=== PATIENT | male | born 1985 | race African-American/Black ===

== ENCOUNTER 2018-07-09 09:59 | Inpatient (IN) ==
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
[2018-07-09] MEDS ORDERED: PHENERGAN IV ONE (11:36)
[2018-07-09] MEDS ORDERED: SODIUM CHLORIDE 0.9% INJ ONE (11:36)
[2018-07-09] MEDS ORDERED: NS 1,000 ML IV ONE ×2 (11:37→12:35)
[2018-07-09 11:58] LABS: HEMATOCRIT 37.4 % (42.0-52.0); HEMOGLOBIN 12.5 g/dL (14.0-18.0); MCV 91.4 FL (81-99); RBC 4.09 XMIL (4.7-6.1); WBC 17.45 X1000 (4.8-10.8)
[2018-07-09 11:59] LABS: BASO# 0.03 X1000 (0.0-0.2); BASO% 0.2 % (0.0-0.8); EOS# 0.03 X1000 (0.0-0.7); EOS% 0.2 % (0.0-10.0); IMM GRAN# 0.05 X1000 (0.0-0.04); IMM GRAN% 0.3 % (0.0-0.5); LYMPH# 2.31 X1000 (1.2-3.4); LYMPH% 13.2 % (20.5-51.1); MCH 30.6 PG (27-31); MCHC 33.4 g/dL (33-37); MONO# 1.41 X1000 (0.11-0.59); MONO% 8.1 % (1.7-9.3); MPV 11.2 FL (7.4-10.4); NEUT# 13.62 X1000 (1.4-6.5); PLT 209 X1000 (130-400); RDW 13.3 % (11.5-14.5)
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
[2018-07-09 12:19] LABS: CREATININE 1.4 mg/dL (0.7-1.2); POTASSIUM 4.7 mmol/L (3.5-5.1)
[2018-07-09 12:20] LABS: CALCIUM 8.8 mg/dL (8.8-10.2); TOTAL BILIRUBIN 0.4 mg/dL (0.20-1.00); TOTAL PROTEIN 6.5 g/dL (6.3-8.3)
[2018-07-09 12:53] LABS: CK INDEX 0.1 (0.0-2.5); CK-MB 1.82 ng/mL (0.0-5.0)
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
[2018-07-09 13:57] LABS: UR AMPHETAMINES QUAL NONE DETECTED (NONE DETECT); UR BARBITUATES QUAL NONE DETECTED (NONE DETECT); UR BENZODIAZEPIN QUAL PRESUMPTIVE POSITIVE (NONE DETECT); UR CANNABINOIDS QUAL PRESUMPTIVE POSITIVE (NONE DETECT); UR COCAINE QUAL NONE DETECTED (NONE DETECT); UR METHADONE QUAL NONE DETECTED (NONE DETECT); UR METHAMPHETAMINE QUAL NONE DETECTED (NONE DETECT); UR OPIATES QUAL NONE DETECTED (NONE DETECT); UR OXYCODONE QUAL NONE DETECTED (NONE DETECT); UR PCP QUAL NONE DETECTED (NONE DETECT); UR PROPOXYPHENE QUAL NONE DETECTED (NONE DETECT); UR TCA QUAL NONE DETECTED (NONE DETECT)
[2018-07-09 14:12] LABS: URINE EPITHELIAL CELLS <10 /HPF (<10)
[2018-07-09 14:13] LABS: BILIRUBIN URINE NEGATIVE (NEGATIVE); CLARITY VERY CLOUDY (CLEAR); COLOR YELLOW; KETONE URINE TRACE mg/dL (NEGATIVE); URINE BACTERIA 2+ /HFP; URINE CAST NONE SEEN /LPF; URINE CRYSTAL NONE SEEN /HPF; URINE SOURCE CATH; URINE YEAST NONE SEEN /HPF
[2018-07-09 14:14] LABS: BLOOD URINE NEGATIVE (NEGATIVE); LEUKOCYTES URINE TRACE (NEGATIVE); NITRITE URINE POSITIVE (NEGATIVE); PH URINE 6.5; PROTEIN URINE 1+(30 mg/dL) mg/dL (NEGATIVE); SP GRAVITY URINE 1.025; UROBILINOGEN URINE 4 mg/dL
[2018-07-09] MEDS ORDERED: ZOFRAN IV PRN (14:22)
[2018-07-09] MEDS ORDERED: TYLENOL PO PRN (14:22)
[2018-07-09] MEDS: NS 1,000 ML IV SCH ×2 (15:03→23:54)
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
[2018-07-09] MEDS: NORCO-7.5 PO PRN ×2 (15:15→19:11)
[2018-07-09] MEDS ORDERED: TORADOL IV PRN (16:56)
[2018-07-09 17:03] LABS: CK INDEX 0.1 (0.0-2.5); CK-MB 1.88 ng/mL (0.0-5.0)
[2018-07-09] MEDS ORDERED: ROCEPHIN 1 GM in NS 50 ML IV SCH (18:00)
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
[2018-07-10] MEDS: NORCO-7.5 PO PRN ×2 (03:49→10:42)
[2018-07-10] MEDS: NS 1,000 ML IV SCH ×2 (06:19→18:38)
[2018-07-10 07:54] LABS: AGAP 7; BUN 17 mg/dL (8-22); CALCIUM 7.7 mg/dL (8.8-10.2); CHLORIDE 108 mmol/L (98-107); COSMO 279; CREATININE 0.9 mg/dL (0.7-1.2); ESTIMATED GFR > 60; GLUCOSE 98 mg/dL (70-104); SODIUM 139 mmol/L (136-145); TCO2 25 mmol/L (25-35)
[2018-07-10 08:05] LABS: BASO# 0.03 X1000 (0.0-0.2); BASO% 0.3 % (0.0-0.8); EOS# 0.11 X1000 (0.0-0.7); EOS% 1.1 % (0.0-10.0); HEMATOCRIT 23.5 % (42.0-52.0); HEMOGLOBIN 7.8 g/dL (14.0-18.0); IMM GRAN# 0.02 X1000 (0.0-0.04); IMM GRAN% 0.2 % (0.0-0.5); LYMPH# 2.93 X1000 (1.2-3.4); LYMPH% 29.4 % (20.5-51.1); MCH 30.4 PG (27-31); MCHC 33.2 g/dL (33-37); MCV 91.4 FL (81-99); MONO# 1.05 X1000 (0.11-0.59); MONO% 10.6 % (1.7-9.3); MPV 11.3 FL (7.4-10.4); NEUT# 5.81 X1000 (1.4-6.5); NEUT% 58.4 % (42.2-75.2); PLT 137 X1000 (130-400); RBC 2.57 XMIL (4.7-6.1); RDW 13.1 % (11.5-14.5); WBC 9.95 X1000 (4.8-10.8)
[2018-07-10 09:48] LABS: HEMATOCRIT 23.4 % (42.0-52.0); HEMOGLOBIN 7.8 g/dL (14.0-18.0); MCH 30.5 PG (27-31); MCHC 33.3 g/dL (33-37); MCV 91.4 FL (81-99); RBC 2.56 XMIL (4.7-6.1); WBC 9.45 X1000 (4.8-10.8)
[2018-07-10] MEDS: NICODERM PATCH TD SCH (10:42)
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
[2018-07-10] MEDS ORDERED: SODIUM CHLORIDE 0.9% INJ SCH (12:00)
[2018-07-10] MEDS: PEPCID IV SCH ×2 (12:23→23:57)
[2018-07-10] MEDS: MERREM 1 GM in NS 50 ML IV SCH ×2 (12:36→20:04)
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
[2018-07-10 16:47] LABS: HEMATOCRIT 27.3 % (42.0-52.0)
[2018-07-10 21:23] LABS: HEMATOCRIT 26.6 % (42.0-52.0); HEMOGLOBIN 8.9 g/dL (14.0-18.0)
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
[2018-07-10] MEDS: MORPHINE IV PRN (23:57)
[2018-07-11] MEDS: MORPHINE IV PRN (03:51)
[2018-07-11] MEDS: MERREM 1 GM in NS 50 ML IV SCH (03:51)
[2018-07-11] MEDS: NS 1,000 ML IV SCH (05:31)
[2018-07-11 07:34] LABS: BASO# 0.03 X1000 (0.0-0.2); BASO% 0.4 % (0.0-0.8); EOS# 0.11 X1000 (0.0-0.7); EOS% 1.4 % (0.0-10.0); HEMATOCRIT 24.4 % (42.0-52.0); IMM GRAN# 0.02 X1000 (0.0-0.04); IMM GRAN% 0.3 % (0.0-0.5); LYMPH# 2.66 X1000 (1.2-3.4); LYMPH% 33.8 % (20.5-51.1); MCHC 32.8 g/dL (33-37); MCV 91.4 FL (81-99); MONO# 0.82 X1000 (0.11-0.59); MONO% 10.4 % (1.7-9.3); MPV 11.1 FL (7.4-10.4); NEUT# 4.24 X1000 (1.4-6.5); NEUT% 53.7 % (42.2-75.2); PLT 143 X1000 (130-400); RBC 2.67 XMIL (4.7-6.1); RDW 13.3 % (11.5-14.5); WBC 7.88 X1000 (4.8-10.8)
[2018-07-11 07:52] LABS: AGAP 6; ALB/GLOB RATIO 1.6; ALKALINE PHOSPHATASE 34 U/L (32-122); BUN 10 mg/dL (8-22); CALCIUM 8.3 mg/dL (8.8-10.2); CHLORIDE 108 mmol/L (98-107); COSMO 280; DIRECT BILIRUBIN < 0.10 mg/dL (0.00-0.20); ESTIMATED GFR > 60; GLUCOSE 87 mg/dL (70-104); GOT 21 U/L (10-34); GPT 14 U/L (10-44); SODIUM 141 mmol/L (136-145); TCO2 27 mmol/L (25-35); TOTAL BILIRUBIN 0.61 mg/dL (0.20-1.00); TOTAL PROTEIN 4.9 g/dL (6.3-8.3)
[2018-07-11] MEDS: NICODERM PATCH TD SCH (08:49)
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
[2018-07-11] MEDS: PEPCID IV SCH (11:38)
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
[2018-07-11] MEDS: DILANTIN PO SCH ×3 (13:11→17:02)
[2018-07-11 15:22] VITALS: BP 145/73
--- NOTE | 2018-07-11 17:10 | Diag Imaging Result Doc PS360 ---
EXAM: MRI BRAIN W/WO CONTRAST HISTORY: siezure disorder. Normal CT brain TECHNIQUE: MRI brain with and without contrast. Axial, sagittal, and coronal images obtained in multiple sequences. These are followed the post contrasted axial and coronal images. COMPARISON: None. FINDINGS: No recent infarct. No microvascular ischemic changes. No hydrocephalus. No mass or midline shift. No enhancing lesion on the postcontrast images. No epidural or subdural fluid collection. Normal orbits. No sinus opacification. IMPRESSION: No abnormality. Electronically signed by Albin Goyal 07/11/2018 5:08 PM
--- NOTE | 2018-07-11 18:21 | EEG REPORT ---
DATE: 07/10/2018 COMMENT: This is a digitally recorded EEG on a young man with history suggestive of partial seizure including olfactory aura. FINDINGS: During waking, medium amplitude 10 hertz posterior rhythm is present symmetrically and reacts normally to eye opening. Background contains polymorphic and rhythmic theta frequencies over the frontal and central regions symmetrically. Eye blink and movement artifact are present but do not hinder interpretation. Photic stimulation produced some symmetric entrainment. Hyperventilation with good effort produced a small amount of symmetric slowing. Drowsing occurred briefly. Stage 2 sleep was not recorded. No definite epileptiform discharge was identified. INTERPRETATION: Normal EEG. CORRELATION: The absence of epileptiform discharges on a single EEG does not exclude a clinical diagnosis of seizures. cc: Lolita Douglas III, MD
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
== END 2018-07-11 17:23 | disposition home or self-care (01) | DRG 558 ==
LOC: P.ED 12:12 → P.MEDSURG 14:18 → SUATTDRO 14:18 → 4N 07-10 15:13
PROVIDERS: ATTEND Internal Medicine
CPT/HCPCS: 36430; 51701; 70450; 70553; 71010; 71045; 71101; 71260; 72125; 74177; 80048; 80053; 80076; 80104; 80301; 80305; 81001; 82550; 82553; 82948; 83605; 85014; 85018; 85025; 85027; 86850; 86900; 86901; 86920; 87088; 95816; 96361; 96365; 96375; 99285; A9270; A9579; G0431; G0434; G0477; J0696; J1885; J2185; J2270; J2550; J7030; P9016; P9612; Q9967; S0028; XXXXX

== ENCOUNTER 2019-03-13 10:32 | Inpatient (IN) ==
[2019-03-13] MEDS ORDERED: ATIVAN IV ONE ×3 (10:37→12:34)
[2019-03-13] MEDS ORDERED: ATIVAN ONE ×2 (10:52→12:40)
[2019-03-13] MEDS ORDERED: KEPPRA 2,000 MG in NS 100 ML IV ONE (10:58)
[2019-03-13 11:11] LABS: BASO# 0.14 X1000 (0.0-0.2); BASO% 0.6 % (0.0-0.8); EOS# 0.47 X1000 (0.0-0.7); HEMATOCRIT 54.3 % (42.0-52.0); HEMOGLOBIN 17.1 g/dL (14.0-18.0); IMM GRAN% 2.1 % (0.0-0.5); LYMPH# 10.67 X1000 (1.2-3.4); LYMPH% 44.6 % (20.5-51.1); MCH 30.6 PG (27-31); MCHC 31.5 g/dL (33-37); MCV 97.1 FL (81-99); MONO# 1.93 X1000 (0.11-0.59); MONO% 8.1 % (1.7-9.3); MPV 11.4 FL (7.4-10.4); NEUT# 10.24 X1000 (1.4-6.5); NEUT% 42.6 % (42.2-75.2); PLT 276 X1000 (130-400); RBC 5.59 XMIL (4.7-6.1); RDW 13.8 % (11.5-14.5); WBC 23.95 X1000 (4.8-10.8)
--- NOTE | 2019-03-13 11:18 | EKG Report ---
Test Performed on : 03/13/2019 10:45:59 AM Test Reason : Seizure Blood Pressure : / mmHG Vent. Rate : 088 BPM Atrial Rate : 088 BPM P-R Int : 154 ms QRS Dur : 094 ms QT Int : 322 ms P-R-T Axes : 075 074 047 degrees QTc Int : 389 ms Normal sinus rhythm. with sinus arrhythmia. Possible Left atrial enlargement Incomplete right bundle branch block Borderline ECG No previous ECGs available Unconfirmed Result
[2019-03-13 11:34] LABS: ESTIMATED GFR 49
[2019-03-13 11:54] LABS: UR AMPHETAMINES QUAL NONE DETECTED (NONE DETECT); UR BARBITUATES QUAL NONE DETECTED (NONE DETECT); UR BENZODIAZEPIN QUAL NONE DETECTED (NONE DETECT); UR CANNABINOIDS QUAL NONE DETECTED (NONE DETECT); UR COCAINE QUAL NONE DETECTED (NONE DETECT); UR METHADONE QUAL NONE DETECTED (NONE DETECT); UR OPIATES QUAL NONE DETECTED (NONE DETECT); UR OXYCODONE QUAL NONE DETECTED (NONE DETECT); UR PCP QUAL NONE DETECTED (NONE DETECT)
[2019-03-13 12:01] LABS: AGAP 34; ALB/GLOB RATIO 1.7; ALKALINE PHOSPHATASE 66 U/L (32-122); BUN 11 mg/dL (8-22); CALCIUM 10.7 mg/dL (8.8-10.2); CHLORIDE 104 mmol/L (98-107); COSMO 288; CREATININE 1.3 mg/dL (0.7-1.2); GLUCOSE 168 mg/dL (70-104); GOT 22 U/L (10-34); GPT 20 U/L (10-44); MAGNESIUM 2.1 mg/dL (1.5-2.7); PHENYTOIN < 0.80 ug/mL (10-20); POTASSIUM 4.5 mmol/L (3.5-5.1); SODIUM 148 mmol/L (136-145); TCO2 10 mmol/L (25-35); TOTAL BILIRUBIN 0.15 mg/dL (0.20-1.00); TOTAL PROTEIN 6.4 g/dL (6.3-8.3)
[2019-03-13 12:06] LABS: ALLEN TEST YES; BE -12.9 mmoll (-3.0-3.0); BLOOD TYPE ARTERIAL; HCO3-(ACT) 14.5 mmoll (20.0-26.0); METHB 0.8 % (0.0-1.5); O2(CT) 20.2 mL/dL (15.0-23.0); PCO2(98.6) 32 mmHg (35-45); PO2(98.6) 65 mmHg (60-100); SAMPLE BLOOD; THB 16.4 g/dL (11.5-17.4); pH(98.6) 7.23 (7.35-7.45)
--- NOTE | 2019-03-13 12:09 | Diag Imaging Result Doc PS360 ---
EXAM: CHEST-1 VIEW HISTORY: hypoxemia TECHNIQUE: Single view COMPARISON: 07/09/2018 FINDINGS: The lungs are well expanded. The heart is not enlarged. The vessels are not distended. There are small left basilar infiltrates. No effusion identified. IMPRESSION: Left basilar infiltrates Electronically signed by Albin Goyal 03/13/2019 12:06 PM
[2019-03-13 12:10] LABS: MODALITY NRB
[2019-03-13 12:11] LABS: O2HB 87.9 % (95.0-99.0)
[2019-03-13 12:25] LABS: LYMPHS 56 % (21-51); MONO 2 % (1-9); SEGS 38 % (42-75)
[2019-03-13] MEDS ORDERED: ROCEPHIN 2 GM in NS 50 ML IV ONE (12:32)
[2019-03-13] MEDS ORDERED: NS 0 ML ONE (12:40)
[2019-03-13] MEDS ORDERED: DIPRIVAN 1% 1,000 MG/100 ML BOTTLE ONE (13:02)
[2019-03-13] MEDS: DIPRIVAN 1% 1,000 MG/100 ML BOTTLE IV SCH ×4 (13:05→23:17)
[2019-03-13] MEDS ORDERED: DIPRIVAN 1% ONE (14:27)
[2019-03-13] MEDS ORDERED: DUONEB (A & A) INH PRN (14:28)
[2019-03-13] MEDS ORDERED: VANCOMYCIN IV PER PHARMACY MISC SCH (14:30)
[2019-03-13] MEDS ORDERED: CLINDAMYCIN 600 MG/NS 600 MG/50 ML IVPB IV SCH (14:30)
[2019-03-13] MEDS ORDERED: AMIDATE ONE (14:43)
[2019-03-13] MEDS ORDERED: QUELICIN ONE ×2 (14:44→15:13)
[2019-03-13] MEDS ORDERED: VERSED ONE (15:15)
[2019-03-13] MEDS ORDERED: KETAMINE ONE (15:15)
[2019-03-13] MEDS ORDERED: ZOFRAN IV PRN (15:17)
--- NOTE | 2019-03-13 15:22 | HISTORY AND PHYSICAL ---
ADDENDUM: The patient was brought to the ambulance after having a seizure. The patient was hyperventilating. No visible tongue biting evident. The patient was sweating profusely. The patient was unresponsive at the time of the examination in the ER. Upon my examination, this patient was very combative. He was using a BiPAP mask. He was of course not able to provide any information; there were no family members at bedside to provide more information. Upon ER examination, we think this patient has aspirated with elevated white cell count 23.95, and also the ABG shows metabolic acidosis with pH 7.30, with pCO2 32 and PO2 of 65 with a bicarbonate of 14.3 with likely this elevated from 9.2. BMP reveals so far elevated sodium 148 and creatinine 1.3. The patient looks like he is dehydrated. He has been given so far 2 doses of Ativan 2 mg IV, but patient still combative. He is postictal on my examination. Considering his current mental status, it was not possible to do a CT of the head. I have ordered 1 once he is more stable. Because of his combativeness and requiring BiPAP, I prefer to go ahead and intubate this patient to protect airways. We are going to consult Pulmonary and Critical Care for this patient. Considering his new findings of left bibasilar pneumonia and the fact that he has 1 episode of seizure, it makes sense that this patient has definitely aspirated. Considering his history of amoxicillin allergy, we will start this patient on vancomycin, Levaquin and clindamycin. We will transfer the patient to the intensive care unit. Apparently, he has been here many times because of noncompliance with his medication. He is supposed to be on phenytoin that apparently EMS said that this patient was not taking his medication for at least a month. He has been loaded with Keppra 2 g IV. We are going to continue 1 g IV q. 12 hours. We will provide propofol drip for sedation. On top of that, if this patient still is agitated, we will do 2 mg of Ativan q. 3 hours p.r.n. agitation or seizure. We will monitor this patient closely. We will consult also Neurology. The patient is going to be sent to the intensive care unit. For acute kidney injury I think this patient will receive aggressive fluid resuscitation. We will check renal profile every day, as well as CBC, and we will check an ABG tomorrow morning. cc: Jose Castillo MD MTDD
[2019-03-13] MEDS ORDERED: SODIUM CHLORIDE 0.9% INJ SCH (15:30)
[2019-03-13] MEDS ORDERED: PHENOBARBITAL IV PRN (15:31)
[2019-03-13] MEDS ORDERED: DIPRIVAN 1% IV ONE ×2 (15:32→16:00)
[2019-03-13 15:47] LABS: ALLEN TEST YES; BE -4.7 mmoll (-3.0-3.0); BLOOD TYPE ARTERIAL; HCO3-(ACT) 21.2 mmoll (20.0-26.0); O2(CT) 23.6 mL/dL (15.0-23.0); O2HB 97.5 % (95.0-99.0); PCO2(98.6) 38 mmHg (35-45); PO2(98.6) 211 mmHg (60-100); SAMPLE BLOOD; SAO2 99.8 % (95.0-100.0); SRATE 16 BPM; THB 16.9 g/dL (11.5-17.4); TVOL 600 mL; pH(98.6) 7.34 (7.35-7.45)
[2019-03-13 15:48] LABS: MODALITY VENTILATOR
[2019-03-13] MEDS: ATIVAN IV PRN ×2 (16:00→23:16)
[2019-03-13] MEDS ORDERED: VANCOMYCIN 2,000 MG in NS 500 ML IV ONE (16:00)
[2019-03-13] MEDS: DUONEB (A & A) INH SCH ×3 (17:25→23:27)
[2019-03-13] MEDS: KEPPRA 1,000 MG/NS 1,000 MG/100 ML IVPB IV SCH ×2 (18:00→20:52)
[2019-03-13] MEDS: NS 1,000 ML IV SCH ×2 (18:05→23:17)
[2019-03-13] MEDS: CLINDAMYCIN 600 MG/D5W 600 MG/50 ML IVPB IV SCH ×2 (18:05→22:23)
[2019-03-13] MEDS: PROTONIX IV SCH (18:06)
[2019-03-13] MEDS: LEVAQUIN 750 MG/D5W 750 MG/150 ML IVPB IV SCH (18:06)
[2019-03-13 18:28] LABS: URINE SOURCE CATH
[2019-03-13 18:42] LABS: BILIRUBIN URINE NEGATIVE (NEGATIVE); BLOOD URINE NEGATIVE (NEGATIVE); COLOR STRAW; GLUCOSE URINE NEGATIVE (NEGATIVE); KETONE URINE NEGATIVE (NEGATIVE); LEUKOCYTES URINE NEGATIVE (NEGATIVE); NITRITE URINE NEGATIVE (NEGATIVE); PROTEIN URINE NEGATIVE (NEGATIVE); SP GRAVITY URINE 1.008; TURBIDITY URINE CLEAR (CLEAR); UROBILINOGEN URINE NORMAL (NORMAL)
[2019-03-13 18:44] LABS: UR EPITHELIAL CELLS <10 /HPF (<10); URINE BACTERIA NEGATIVE /HPF; URINE RBC <10 /HPF (<10); URINE WBC <10 /HPF (<10)
--- NOTE | 2019-03-13 18:54 | PROVIDER DOCUMENTATION ---
This chart was entered by Ella Hilliard Scribcrispin, acting as scribe for Harry Felipe MD. HPI-Neurological Disorder - General Chief Complaint: Seizure Stated Complaint: Seizure LIke Activity Time Seen by Provider: 03/13/19 10:56 Source: patient, EMS ([facility]) Unable to obtain history due to:: other (unresponsive) Allergies/Adverse Reactions: Patient Allergies Allergy/AdvReac Type Severity Reaction Status Date / Time amoxicillin [Amoxicillin] AdvReac Mild NAUSEA Verified 03/13/19 11:51 Home Medications: Home Medication List Medication Instructions Recorded Confirmed Last Taken Type NK [No Home Medications] 02/01/19 03/13/19 Unknown History Unobtainable [Home Meds 03/13/19 03/13/19 Unknown History Unobtainable] - History of Present Illness-Neuro Nature of Presenting Problem: Pt brought in by [facility] with seizure activity after giving plasma. Pt is hyperventilating with no visible tongue biting evident. Pt is sweating profusely. Pt is unresponsive at time of initial exam. Onset/Duration: reports: abrupt, just prior to arrival Timing: reports: still present Context: reports: seizure activity Approximate time patient was last seen normal?: 08:00 Character of Altered Mental Status: reports: unresponsive, seizure activity Any recent trauma/injury?: reports: none Gait Baseline: walks without assistance Associated Symptoms: reports: loss of consciousness, muscle spasms, diaphoretic Similar Symptoms Previously?: Yes - Seizure First time to have a seizure?: No Witnessed seizure?: Yes Preceding symptoms/context:: other (Pt was giving plasma.) Character of Seizure: reports: lost consciousness, generalized shaking all over Review of Systems - Adult - REVIEW OF SYSTEMS - ADULT ROS:: unobtainable per condition Constitutional: reports: no symptoms reported Past History - Adult - PAST MEDICAL HISTORY-ADULT Review of Records: reports: Old Records Reviewed, Nursing Assessment Review, Medications Reviewed, Social history reviewed & non-contributory. Major Childhood Illnesses: reports: denies history Cardiovascular: reports: denies history Respiratory: reports: denies history Gastrointestinal: reports: denies history Genitourinary: reports: denies history Musculoskeletal: reports: denies history Neurological: reports: Seizures/Epilepsy Psychiatric: reports: anxiety Endocrine/Immune: reports: denies history Other Conditions: reports: denies history - IMMUNIZATION STATUS Childhood Immunizations: See Nurse Assessment Flu Vaccine: See Nurse Assessment - FAMILY HISTORY Family History: reviewed, not pertinent - SOCIAL HISTORY Smoking: cigarettes, less than 1 pack/day Provider spent 3-5 mins advising pt. on dangers of tobacco.: Discussed manners to quit use, and f/u contacts for add'l counseling. Substance Use: alcohol, marijuana Physical Exam- Neurological - Physical Exam-Neuro Initial Vital Signs Reviewed: Yes (HR 124, Resp 27, O2 90 RA) General Appearance: severe distress Head Injury: no evidence of injury Progress - PLAN OF CARE/RESULTS Progress/Plan/Lab Results: Vital Signs - 8 hr 03/13/19 12:21 03/13/19 12:40 03/13/19 13:01 Pulse Rate 114 H 90 94 H Respiratory Rate 31 H 24 23 Blood Pressure 124/77 129/85 117/93 O2 Sat by Pulse Oximetry 88 L 97 100 03/13/19 13:31 03/13/19 14:01 03/13/19 14:31 Pulse Rate 81 77 91 H Respiratory Rate 16 16 20 Blood Pressure 138/111 160/92 146/100 O2 Sat by Pulse Oximetry 100 100 100 03/13/19 15:14 03/13/19 15:19 03/13/19 15:31 Pulse Rate 115 H 124 H Respiratory Rate Blood Pressure 168/118 130/75 O2 Sat by Pulse Oximetry 100 100 100 03/13/19 16:01 03/13/19 16:21 03/13/19 16:32 Pulse Rate 131 H 130 H 127 H Respiratory Rate Blood Pressure 150/100 192/108 142/103 O2 Sat by Pulse Oximetry 100 100 03/13/19 15:40 Influenza Screen - Final Nasopharyngeal Laboratory Results - last 24 hr 03/13/19 03/13/19 03/13/19 10:39 10:39 10:39 WBC 23.95 H RBC 5.59 Hgb 17.1 Hct 54.3 H MCV 97.1 MCH 30.6 MCHC 31.5 L RDW Std Deviation 13.8 Plt Count 276 MPV 11.4 H Immature Gran % (Auto) 2.1 H Neut % (Auto) 42.6 Lymph % (Auto) 44.6 Cooke % (Auto) 8.1 Eos % (Auto) 2.0 Baso % (Auto) 0.6 Immature Gran # (Auto) 0.50 H Neut # (Auto) 10.24 H Lymph # (Auto) 10.67 H Cooke # (Auto) 1.93 H Eos # (Auto) 0.47 Baso # (Auto) 0.14 Segmented Neutrophils 38 L Lymphocytes 56 H Monocytes 2 Atypical Lymphocytes 4.0 Specimen Type Sample Site pH pCO2 pO2 HCO3 Base Excess Oxyhemoglobin ABG O2 Sat (Calculated) ABG O2 Saturation ABG Carboxyhemoglobin ABG Methemoglobin Manny Test A-a O2 Difference Total Hemoglobin Lactate Liter Flow Blood Gas Modality Spontaneous Rate FiO2 % Tidal Volume PEEP Sodium 148 H Potassium 4.5 Chloride 104 Carbon Dioxide 10 L Anion Gap 34 BUN 11 Creatinine 1.3 H Estimated GFR/1.73 m2 49 BUN/Creatinine Ratio 8 Glucose 168 H POC Glucose Calculated Osmolality 288 Calcium 10.7 H Magnesium 2.1 Total Bilirubin 0.15 L AST 22 ALT 20 Alkaline Phosphatase 66 Total Protein 6.4 Albumin 4.0 Globulin 2.4 Albumin/Globulin Ratio 1.7 Urine Opiates Screen Ur Oxycodone Screen Ur Methadone, Qual Ur Barbiturates Screen Total Phenytoin < 0.80 L Ur Phencyclidine Scrn Ur Amphetamines Screen U Benzodiazepines Scrn Urine Cocaine Screen U Cannabinoids Screen Plasma/Serum Ethyl Alc 03/13/19 03/13/19 03/13/19 10:50 11:07 11:55 WBC RBC Hgb Hct MCV MCH MCHC RDW Std Deviation Plt Count MPV Immature Gran % (Auto) Neut % (Auto) Lymph % (Auto) Cooke % (Auto) Eos % (Auto) Baso % (Auto) Immature Gran # (Auto) Neut # (Auto) Lymph # (Auto) Cooke # (Auto) Eos # (Auto) Baso # (Auto) Segmented Neutrophils Lymphocytes Monocytes Atypical Lymphocytes Specimen Type ARTERIAL Sample Site R RADIAL pH 7.23 L pCO2 32 L pO2 65 HCO3 14.5 L Base Excess -12.9 L Oxyhemoglobin 87.9 L* ABG O2 Sat (Calculated) 20.2 ABG O2 Saturation 93.0 L ABG Carboxyhemoglobin 4.70 H ABG Methemoglobin 0.8 Manny Test YES A-a O2 Difference 608.0 Total Hemoglobin 16.4 Lactate 9.20 H* Liter Flow 15.0 Blood Gas Modality NRB Spontaneous Rate FiO2 % 100.0 Tidal Volume PEEP Sodium Potassium Chloride Carbon Dioxide Anion Gap BUN Creatinine Estimated GFR/1.73 m2 BUN/Creatinine Ratio Glucose POC Glucose 171 H Calculated Osmolality Calcium Magnesium Total Bilirubin AST ALT Alkaline Phosphatase Total Protein Albumin Globulin Albumin/Globulin Ratio Urine Opiates Screen NONE DETECTED Ur Oxycodone Screen NONE DETECTED Ur Methadone, Qual NONE DETECTED Ur Barbiturates Screen NONE DETECTED Total Phenytoin Ur Phencyclidine Scrn NONE DETECTED Ur Amphetamines Screen NONE DETECTED U Benzodiazepines Scrn NONE DETECTED Urine Cocaine Screen NONE DETECTED U Cannabinoids Screen NONE DETECTED Plasma/Serum Ethyl Alc 03/13/19 15:37 WBC RBC Hgb Hct MCV MCH MCHC RDW Std Deviation Plt Count MPV Immature Gran % (Auto) Neut % (Auto) Lymph % (Auto) Cooke % (Auto) Eos % (Auto) Baso % (Auto) Immature Gran # (Auto) Neut # (Auto) Lymph # (Auto) Cooke # (Auto) Eos # (Auto) Baso # (Auto) Segmented Neutrophils Lymphocytes Monocytes Atypical Lymphocytes Specimen Type ARTERIAL Sample Site R RADIAL pH 7.34 L pCO2 38 pO2 211 H HCO3 21.2 Base Excess -4.7 L Oxyhemoglobin 97.5 ABG O2 Sat (Calculated) 23.6 H ABG O2 Saturation 99.8 ABG Carboxyhemoglobin 1.40 ABG Methemoglobin 1.0 Manny Test YES A-a O2 Difference 455.0 Total Hemoglobin 16.9 Lactate 2.30 H Liter Flow Blood Gas Modality VENTILATOR Spontaneous Rate 16 FiO2 % 100.0 Tidal Volume 600 PEEP 5.0 Sodium Potassium Chloride Carbon Dioxide Anion Gap BUN Creatinine Estimated GFR/1.73 m2 BUN/Creatinine Ratio Glucose POC Glucose Calculated Osmolality Calcium Magnesium Total Bilirubin AST ALT Alkaline Phosphatase Total Protein Albumin Globulin Albumin/Globulin Ratio Urine Opiates Screen Ur Oxycodone Screen Ur Methadone, Qual Ur Barbiturates Screen Total Phenytoin Ur Phencyclidine Scrn Ur Amphetamines Screen U Benzodiazepines Scrn Urine Cocaine Screen U Cannabinoids Screen Plasma/Serum Ethyl Alc Orders Category Date Time Status Admit - [facility] Routine AdmDCTranf 03/13/19 15:17 Active Activity - Up with Assistance ORDERED Care 03/13/19 15:17 Active Apply Mechanical Device [QM] ORDERED Care 03/13/19 15:17 Active FSBS/Accucheck Result Q4HR Care 03/13/19 15:17 Active Intake and Output-Strict ORDERED Care 03/13/19 15:17 Active Nursing- MD Consult Request ROUTINE Care 03/13/19 14:32 Completed Vital Signs Order Q 4-HR ASSESS Care 03/13/19 15:17 Active Physician/Provider Consults Routine Cons 03/13/19 14:32 Ordered NPO Diet 03/13/19 15:18 Active CHEST-1 VIEW [RAD] Stat Exams 03/13/19 11:[address] HEAD W/O CONTRAST [CT] Stat Exams 03/13/19 14:30 Ordered cxr [CHEST-PORTABLE] [RAD] DAILY Exams 03/15/19 06:00 Ordered cxr [CHEST-PORTABLE] [RAD] DAILY Exams 03/16/19 06:00 Ordered ABG [RESP] Routine Lab 03/13/19 11:55 Completed ABG [RESP] Routine Lab 03/13/19 15:37 Completed ABG [RESP] Routine Lab 03/14/19 06:00 Ordered ALCOHOL BLOOD Stat Lab 03/13/19 10:39 Completed BLOOD CULTURE [BLDCUL] Stat Lab 03/13/19 15:55 Results CBC WITH DIFF [HEME] DAILY Lab 03/14/19 06:00 Ordered CBC WITH DIFF [HEME] DAILY Lab 03/15/19 06:00 Ordered CBC WITH DIFF [HEME] DAILY Lab 03/16/19 06:00 Ordered CBC WITH DIFF [HEME] DAILY Lab 03/17/19 06:00 Ordered CBC WITH DIFF [HEME] Stat Lab 03/13/19 10:39 Completed COMPREHENSIVE METABOLIC PANEL [CHEM] Stat Lab 03/13/19 10:39 Completed Dilantin [PHENYTOIN] [TDM] Stat Lab 03/13/19 10:39 Completed INFLUENZA SCREEN A/B Stat Lab 03/13/19 15:40 Completed MAGNESIUM [CHEM] Stat Lab 03/13/19 10:39 Completed RENAL PROFILE [CHEM] DAILY Lab 03/14/19 06:00 Ordered RENAL PROFILE [CHEM] DAILY Lab 03/15/19 06:00 Ordered RENAL PROFILE [CHEM] DAILY Lab 03/16/19 06:00 Ordered RENAL PROFILE [CHEM] DAILY Lab 03/17/19 06:00 Ordered URINE DRUG SCREEN Stat Lab 03/13/19 11:07 Completed 0.9% Sodium Chloride Inj [Ns] 1,000 ml Med 03/13/19 15:30 Active IV 125 mls/hr 0.9% Sodium Chloride Inj [Ns] 50 ml Med 03/13/19 12:40 Discontinued .ROUTE As directed Albuterol 2.5MG/Ipratrop 0.5MG [Duoneb (A & A)] Med 03/13/19 14:28 Active 3 ml INH Q2H PRN PRN Albuterol 2.5MG/Ipratrop 0.5MG [Duoneb (A & A)] Med 03/13/19 15:30 Active 3 ml INH RTQ4H CefTRIAXONE [Rocephin] 2 gm Med 03/13/19 12:32 Discontinued 0.9% Sodium Chloride Inj [Ns] 50 ml IV NOW Clindamycin 600 mg/D5w Med 03/13/19 15:09 Active 600 mg in 50 ml IV Q8H Clindamycin 600 mg/Ns Med 03/13/19 14:30 Discontinued 600 mg in 50 ml IV Q8H Etomidate [Amidate] Med 03/13/19 14:43 Discontinued 40 mg .ROUTE .STK-MED ONE Ketamine Med 03/13/19 15:15 Discontinued 500 mg .ROUTE .STK-MED ONE Levetiracetam 1000 mg/Ns [Keppra 1,000 mg/Ns] Med 03/13/19 09:00 Active 1,000 mg in 100 ml IV Q12H Levetiracetam [Keppra] 2,000 mg Med 03/13/19 10:58 Discontinued 0.9% Sodium Chloride Inj [Ns] 100 ml IV NOW Levofloxacin 750 mg/D5w [Levaquin 750 mg/D5w] Med 03/13/19 14:30 Active 750 mg in 150 ml IV Q24H Lorazepam [Ativan] Med 03/13/19 12:34 Discontinued 1 mg IV NOW ONE Lorazepam [Ativan] Med 03/13/19 10:52 Discontinued 2 mg .ROUTE .STK-MED ONE Lorazepam [Ativan] Med 03/13/19 12:40 Discontinued 2 mg .ROUTE .STK-MED ONE Lorazepam [Ativan] Med 03/13/19 10:37 Discontinued 2 mg IV NOW ONE Lorazepam [Ativan] Med 03/13/19 10:49 Discontinued 2 mg IV NOW ONE Lorazepam [Ativan] Med 03/13/19 14:31 Active 2 mg IV Q3H PRN PRN Midazolam [Versed] Med 03/13/19 15:15 Discontinued 5 mg .ROUTE .STK-MED ONE Ondansetron [Zofran] Med 03/13/19 15:17 Active 4 mg IV Q4H PRN PRN Pantoprazole [Protonix] Med 03/13/19 15:30 Active 40 mg IV Q24H Pharmacy Order [Vancomycin IV Per Pharmacy] Med 03/13/19 14:30 Active 1 each MISC DIRECTED Phenobarbital Med 03/13/19 15:31 Active 130 mg IV Q4H PRN PRN Propofol [Diprivan 1%] Med 03/13/19 14:27 Discontinued 200 mg .ROUTE .STK-MED ONE Propofol [Diprivan 1%] Med 03/13/19 15:32 Discontinued 60 mg IV STAT ONE Propofol [Diprivan 1%] Med 03/13/19 13:02 Discontinued 1,000 mg in 100 ml .ROUTE As directed Propofol [Diprivan 1%] Med 03/13/19 13:00 Active 1,000 mg in 100 ml IV As Directed mls/hr Sodium Chloride 0.9% Med 03/13/19 15:30 Active 10 ml INJ DIRECTED Succinylcholine [Quelicin] Med 03/13/19 14:44 Discontinued 200 mg .ROUTE .STK-MED ONE Succinylcholine [Quelicin] Med 03/13/19 15:13 Discontinued 200 mg .ROUTE .STK-MED ONE Vancomycin 1,500 mg Med 03/14/19 10:00 Active 0.9% Sodium Chloride Inj [Ns] 250 ml IV Q18H Vancomycin 2,000 mg Med 03/13/19 16:00 Discontinued 0.9% Sodium Chloride Inj [Ns] 500 ml IV ONCE Aerosol Treatments Routine Oth 03/13/19 14:29 Active Aerosol Treatments Stat Oth 03/13/19 14:29 Active EKG [EKG] Stat Ther 03/13/19 11:06 Draft Transfer/Admit Order [TRANSFER] Routine Transfer 03/13/19 15:16 Completed Result Diagrams: 03/13/19 10:39 03/13/19 10:39 - REASSESSMENT Reassessment #2 Time Reassessed: 12:35 Status: improving (improving in sense of seizure control w/ Rx given; however pt was noted to desaturate and ABG on NRB reveals p02 only 65. ABG confirms typical metab acidemia, lactate corresp elevated. wbc 24k, ? infectious etiology (doubt) vs. metabolic from seizures. blood culture and Rocephin ordered empirically; ? aspiration, CXR shows L basilar infiltrate: will consult for admit. pt ordered Bipap, add'l Ativan as he is restless w/ mask, still post- ictal.) Reassessment #3 Time Reassessed: 14:15 Status: unchanged Reassessment Comment: Dr at bedside w/pt - EKG 1 Time of EKG reading by physician:: 10:45 EKG Read and Signed by:: Harry Felipe EKG Interpretation (*Must complete 3 of following elements*): Abnormal Rate: 88 Rhythm: NSR with sinus arrhythmia Comments: Possible left atrial enlargement; Incomplete right bundle branch block - XRAY 1 XRAY Study: Chest Impression: See EMR Report (EXAM: CHEST-1 VIEW HISTORY: hypoxemia TECHNIQUE: Single view COMPARISON: 07/09/2018 FINDINGS: The lungs are well expanded. The heart is not enlarged. The vessels are not distended. There are small left basilar infiltrates. No effusion identified. IMPRESSION: Left basilar infiltrates Electronically signed by Albin Goyal 03/13/2019 12:06 PM 03/13/19 1206 Interpreting Physician: Albin Goyal MD Dictated Date/Time: 03/13/19 1206 cc: Harry Felipe MD; None,PCP) Procedures - INTUBATION Time of Intubation: 14:45 Airway Evaluation: Large/Loose Teeth Mallampati Class: 2 Intubation Method: orotracheal Equipment: ETT Tube Size (cm): 7.5 Pretreated with 100% Oxygen?: Yes Breath Sounds after Intubation: equal ETT Primary Tube Confirmation: Capnometry CO2 Change, Direct Visualization, Chest Rise and Fall Intubation Complications: no complications - PROCEDURAL SEDATION Consent Form Signed?: No Sedation type:: deep Indications:: emergancy intubation Prior complications to general anesthesia?: No Prior complications to procedural sedation?: No (unknown) ASA Classification Score: P2. Patient with a mild systemic disease. Airway Physical Exam: large tongue/teeth Mallampati Classification Score:: Cls 2. Tonsillar pillars and uvula hidden by base of tongue. Plan explained to:: other (girlfriend/) Preparation: oximetry during procedure, IV access obtained, suction immediately available, monitor tech used Sedation: etomidate Complications during/after procedure?: none Intra-service time:: 30 minutes or less Departure - Departure Date of Disposition Decision: 03/13/19 Time of Disposition Decision: 15:30 DIAGNOSIS: Status epilepticus, Acute respiratory failure with hypoxia Disposition: ADMITTED INPATIENT 09 Certified Medical Emergency: Emergent Condition: Critical - Critical Care Note This patient required my direct & personal management of CC.: Yes Total Time (mins): 55 Critical Care Statement: This patient required my direct personal management to treat or rule out processes, the absence of which, could potentiallly result in sudden, clinically significant life or limb threatening deterioration. Attestation - Physician/ DIVYA Attestation The physician spent face to face time with patient:: Yes Advanced Practice Provider documentation review:: Supervising physician onsite and consulted in the evaluation and care of this patient. The physician did have a face to face encounter with the patient. This chart was documented by the indicated scribe, (Ella Hilliard, Scribe) and accurately reflects the services I performed and decisions made by me, Harry Felipe MD, as attested by the provider's signature.
--- NOTE | 2019-03-13 21:02 | HISTORY AND PHYSICAL ---
CHIEF COMPLAINT: Seizure. HPI: This is a 34-year-old gentleman with a history of seizure disorder with noncompliance with medication who presented to the emergency room via EMS after having seizurelike activity after giving plasma. According to the ER physician, he was hyperventilating, sweating profusely and unresponsive on arrival. He was given 2000 mg of Keppra as well as 4 of Ativan in the emergency room and muscle spasms and diaphoresis resolved. ABGs on nonrebreather revealed a PO2 of 65. He was placed on BiPAP, saturations maintained at 99 to 100 while on BiPAP but he became restless, started fighting attempting to pull the mask off pulled electrodes off. He was placed in 4-point restraints and placed on Diprivan per the emergency room physician with very little change and he remained combative. PAST MEDICAL HISTORY: Seizure disorder. PAST SURGICAL HISTORY: Were unable to obtain. SOCIAL HISTORY: According to the previous records he smokes a pack of cigarettes a day, 3 to 4 drinks a day and uses marijuana daily. ALLERGIES: Amoxicillin according to the chart. REVIEW OF SYSTEMS: Unable to obtain from the patient. PHYSICAL EXAMINATION: GENERAL: This is a 34-year-old gentleman who is lying on the stretcher in the emergency room BiPAP in place who is combative. VITAL SIGNS: Blood pressure is 129/85 with heart rates ranging from 90 to 110, respirations are 20 to 22, O2 saturations are 98 to 100 percent on BiPAP. HEENT: Pupils are equal, round, and reactive to light. Sclerae are anicteric. Head is normocephalic, atraumatic. Mucous membranes are moist. He does have increased elevation. NECK: Supple with trachea midline. CARDIOVASCULAR: Regular rate and rhythm. S1, S2 appreciated. No murmurs. PULMONARY: Breath sounds with rhonchi noted throughout. Chest rises and falls symmetrically with respiration. GASTROINTESTINAL: Abdomen is soft, nondistended with bowel sounds in all 4 quadrants. NEUROLOGIC: He is postictal. He is combative. He does not follow commands. He does withdraw from pain. SKIN: Warm and dry. LABS: WBC is 23.9 with hemoglobin 12.1, hematocrit 54.3 and platelets of 276,000. Sodium 148, potassium 4.5, BUN 11, creatinine 1.3 with a glucose of 168. Urine drug screen reveals none detected. Blood alcohol none detected. Total phenytoin less than 0.80. ABGs on nonrebreather, pH is 7.23 with a pCO2 of 32, PO2 of 65 and a bicarb of 14.5. Chest x-ray revealed lungs are well expanded. Heart is not enlarged. There is small left basilar infiltrates. No effusion. ASSESSMENT AND PLAN: 1. Presumed seizure after giving blood. 2. History of seizure disorder with noncompliance of medications. 3. Acute kidney injury. 4. Left lower lobe pneumonia very likely aspiration as patient did vomit on his self. 5. Leukocytosis. infectious vs metabolic from seizures. Blood cultures have been obtained. He was given Rocephin in the emergency room. 6. History of alcohol use and marijuana use. PLAN: The patient will be admitted to ICU for close monitoring. He will be placed on telemetry. He is currently on BiPAP and becoming more combative. If we are unable to sedate him for his airway protection he will be intubated. sputum culture Vancomycin, Levaquin and clindamycin Keppra 1 g every 12 hours continue propofol drip per protocol. daily renal profile, daily CBC with differential and daily chest x- rays. CT of the head has been ordered. Once able this can be obtained. Duo nebs q.4 hours and q.2 hours p.r.n. Protonix IV. Patient was examined and plan was discussed with Dr. Dawkins. Further treatments pending hospital course. Dictated by DECLAN Blunt for Jose Castillo MD Addendum: Patient seen and examined by myself. Agree with DECLAN note. It reflects my assessment and plan. Patient is being admitted to hospital for seizures and during his post ictal state he became very agitated and belligerent so we needed to intubate him to protect airways. Will consult Pulmonary and Neurology and will monitor patient closely in ICU. cc: DECLAN Blunt MD [facility]
[2019-03-13] MEDS ORDERED: D50W SYRINGE IV PRN (21:22)
[2019-03-13] MEDS ORDERED: D50W SYRINGE IV ONE (21:34)
[2019-03-14] MEDS: D5 NS 1,000 ML IV SCH ×4 (01:17→22:28)
[2019-03-14] MEDS: DIPRIVAN 1% 1,000 MG/100 ML BOTTLE IV SCH ×7 (02:32→22:28)
[2019-03-14] MEDS: DUONEB (A & A) INH SCH ×6 (03:07→23:21)
[2019-03-14 04:43] LABS: ALLEN TEST YES; BE -1.7 mmoll (-3.0-3.0); BLOOD TYPE ARTERIAL; HCO3-(ACT) 23.7 mmoll (20.0-26.0); PCO2(98.6) 34 mmHg (35-45); PO2(98.6) 145 mmHg (60-100); SAMPLE BLOOD; SRATE 16 BPM; TVOL 600 mL; pH(98.6) 7.42 (7.35-7.45)
[2019-03-14 04:44] LABS: MODALITY VENTILATOR
[2019-03-14 05:49] LABS: BASO# 0.04 X1000 (0.0-0.2); BASO% 0.2 % (0.0-0.8); EOS# 0.04 X1000 (0.0-0.7); EOS% 0.2 % (0.0-10.0); HEMATOCRIT 40.1 % (42.0-52.0); HEMOGLOBIN 13.9 g/dL (14.0-18.0); IMM GRAN# 0.08 X1000 (0.0-0.04); IMM GRAN% 0.4 % (0.0-0.5); LYMPH# 2.73 X1000 (1.2-3.4); LYMPH% 14.1 % (20.5-51.1); MCHC 34.7 g/dL (33-37); MCV 89.5 FL (81-99); MONO# 1.47 X1000 (0.11-0.59); MONO% 7.6 % (1.7-9.3); NEUT# 14.98 X1000 (1.4-6.5); NEUT% 77.5 % (42.2-75.2); PLT 200 X1000 (130-400); RBC 4.48 XMIL (4.7-6.1); WBC 19.34 X1000 (4.8-10.8)
[2019-03-14] MEDS: CLINDAMYCIN 600 MG/D5W 600 MG/50 ML IVPB IV SCH ×4 (06:07→22:28)
[2019-03-14 06:26] LABS: AGAP 11; ALBUMIN 2.9 g/dL (3.5-5.0); BUN 7 mg/dL (8-22); CALCIUM 8.5 mg/dL (8.8-10.2); CHLORIDE 109 mmol/L (98-107); COSMO 280; ESTIMATED GFR > 60; GLUCOSE 112 mg/dL (70-104); PHOSPHORUS 3.1 mg/dL (2.7-4.5); POTASSIUM 3.5 mmol/L (3.5-5.1); SODIUM 141 mmol/L (136-145); TCO2 21 mmol/L (25-35)
--- NOTE | 2019-03-14 08:22 | Diag Imaging Result Doc PS360 ---
CT HEAD W/O CONTRAST - 03/13/2019 INDICATION: seizures, ams COMPARISON: 11/10/2018 FINDINGS: The ventricles and sulci are normal in size and contour. No intracranial mass or hemorrhage. The skull is intact. There is substantial sinusitis of all the paranasal sinuses. IMPRESSION: No acute intracranial abnormality. Pansinusitis. This exam was performed using automated exposure control, adjustment of mA or kV according to patient size, and/or use of iterative reconstruction technique Electronically signed by Frank Hinton 03/14/2019 8:19 AM
--- NOTE | 2019-03-14 09:35 | Diag Imaging Result Doc PS360 ---
CHEST-PORTABLE - 03/14/2019 INDICATION: ventilator COMPARISON: 03/13/2019 FINDINGS: There is an endotracheal tube in good position at T3. The nasogastric tube tip is at the gastroesophageal junction. Recommend advancement by about 10 cm. The lungs are clear and the heart size is normal. IMPRESSION: Nasogastric tube tip at the gastroesophageal junction. Recommend advancing by about 10 cm. Electronically signed by Frank Hinton 03/14/2019 9:32 AM
[2019-03-14] MEDS: KEPPRA 1,000 MG/NS 1,000 MG/100 ML IVPB IV SCH ×2 (09:41→20:24)
[2019-03-14] MEDS ORDERED: VANCOMYCIN 1,500 MG in NS 250 ML IV SCH (10:00)
[2019-03-14] MEDS: ATIVAN IV PRN ×3 (11:36→23:50)
--- NOTE | 2019-03-14 11:45 | PROVIDER PROGRESS NOTE ---
Progress Note Pulmonary additional note: I have seen and examined the case, reviewed the EMR, labs, latest images and other medical teams notes. Also reviewed the CHILD ADVOCATE notes and signed necessary form(s). I have noted changes in condition from yesterday. Please see also signed progress sheet. I reviewed the medications in summary list. I reviewed the orders of the patient. Seizures, pneumonia (aspiration) and acute respiratory failure. I checked Ventilator settings and titrated to patient needs per clinical protocols and watched the patient responses. I titrated sedation to patients needs per clinical protocols and monitored patient responses. (diprivan and ativan) Since yesterday, Prognosis: Guarded for now. I reviewed latest notes from Dr. Dawkins I discussed with family at the bedside the condition and answered there questions. I did the evaluation exam and management on the other sheet and the BIOMETRICS INSTRUCTOR did the scribing only. I asked staff technologist about condition changes and if they have any needs in regard to today conditions. I spent 32 minutes in this process.
[2019-03-14] MEDS: LEVAQUIN 750 MG/D5W 750 MG/150 ML IVPB IV SCH (15:20)
--- NOTE | 2019-03-14 15:52 | PROGRESS NOTE ---
DATE: 03/14/2019 INTERVAL HISTORY: The patient remains intubated and sedated, although he does arouse to gentle stimulation. Currently saturating 100% on 40% FiO2. He is markedly improved from previous. No romario fevers overnight, although had one mildly elevated temp at 100.0 degrees. Hopeful that he will be able to be extubated soon. No other acute events overnight. REVIEW OF SYSTEMS: Unable to obtain secondary to the patient's mental status. LABS: WBC 19.3, hemoglobin 13.9, hematocrit 40.0, platelets 200,000. ABG with pH 7.42, pCO2 of 34, PO2 of 145 on ventilator with 40% oxygen. Sodium 141, potassium 3.5, bicarb 21, BUN 7, creatinine 1. Urinalysis unremarkable. UDS negative. VITALS: T-max 100.0 degrees, pulse 87, blood pressure 129/88, respirations 16, O2 saturation 100% on 40% FiO2 via vent. PHYSICAL EXAMINATION: General: No acute distress. Vitals: As above. Intubated and sedated. HEENT: Normocephalic, atraumatic. ET tube in place. Cardiovascular: Regular rate and rhythm. No murmurs noted. Pulmonary: A few scattered rhonchi but largely clear to auscultation. Abdomen: Soft, nontender, nondistended. Bowel sounds positive. Extremities: Peripheral pulses intact. No clubbing, cyanosis. Neurologic: Exam limited by sedation. Pupils equal, round, reactive to light. Spontaneous movement of all extremities despite sedation. Psychiatric: Sedated, although arousing some. ASSESSMENT AND PLAN: 1. Respiratory failure, aspiration pneumonia. Likely secondary to seizure. Lungs are actually pretty clear on imaging and oxygen requirements have improved rapidly. Suspect that his seizure was the primary problem. On antibiotics with vancomycin, Levaquin which will continue for now but if he continues to improve, will likely narrow to just Levaquin in the next day or 2. Pulmonology following. Hopefully we will be able to extubate soon. 2. Seizure disorder, medication noncompliance. Patient with known history of seizure disorder, but was not taking medications at home. Came in with seizure, unresponsive. Back on [facility] and has done well since then. Phenobarbital and Ativan ordered on a p.r.n. basis, but did not have to have those since being placed back on his Keppra. 3. Metabolic encephalopathy, likely secondary to seizure and respiratory distress. We will monitor mental status once he is extubated. 4. Acute kidney injury, now resolved. Creatinine 1.0. 5. Sinusitis incidentally noted on imaging on antibiotics as above. 6. Severe sepsis secondary to aspiration pneumonia and seizure. Patient with markedly elevated lactate on admission, but this has resolved. Lactate normal on last check. 7. Hypernatremia, resolved with fluids overnight. 8. Volume depletion. The patient appeared to be volume down on admission, much improved with IV fluids overnight. Continue gentle fluids for now and monitor.
[2019-03-14] MEDS: PROTONIX IV SCH (16:15)
--- NOTE | 2019-03-14 21:01 | CONSULTATION ---
DATE OF CONSULTATION: 03/14/2019 CHIEF COMPLAINT: Respiratory failure. HISTORY OF PRESENT ILLNESS: This is a 34-year-old male with a history of seizure disorder and medication noncompliance. Recently had an episode of seizure-like activity after receiving plasma. Recent chest x-ray reveals small left basilar infiltrate. He is now on mechanical ventilation. PAST MEDICAL HISTORY: Seizure disorder. PAST SURGICAL HISTORY: Unable to obtain. REVIEW OF SYSTEMS: Unable to obtain. ALLERGIES: Amoxicillin, according to chart. PHYSICAL EXAMINATION: Vital Signs: Temperature 98.3, blood pressure 131/83, pulse 86, respirations 16. O2 saturation 100% per mechanical ventilation. General: This is a 34-year-old male lying in bed on ventilatory support. HEENT: Pupils round, reactive to light. Sclerae are anicteric. Head atraumatic, normocephalic. Mucous membranes moist. Neck: Supple. Trachea midline. Cardiovascular: Regular rate and rhythm. S1, S2 appreciated. No murmurs, gallops or rubs. Respiratory: Breath sounds with rhonchi noted throughout. Symmetrical rise and fall of the chest. Gastrointestinal: Abdomen soft, nondistended. Bowel sounds present in all 4 quadrants. Skin: Warm, dry. LABORATORIES: Sodium 141. Potassium 3.5. Chloride 109. Glucose 112. White blood cells 19.34. Platelets 200,000. Hematocrit 40.1. Hemoglobin 13.9. PH 7.42. PO2 of 34. PCO2 of 145. Bicarbonate 23.7. DIAGNOSTIC DATA: Mentioned in the HPI. ASSESSMENT AND PLAN: 1. Acute respiratory failure. Continue ventilatory support. We will titrate to patient needs and responses per protocol. 2. Aspiration pneumonia. Continue antibiotics and bronchodilators. 3. Continue gastrointestinal prophylaxis. Thank you for the courtesy of this consult. Dictated by DECLAN Rosenberg for Martha Easley MD cc: DECLAN Rosenberg MD
[2019-03-14] MEDS: VANCOMYCIN 1,500 MG in NS 250 ML IV SCH (22:18)
[2019-03-15] MEDS: DIPRIVAN 1% 1,000 MG/100 ML BOTTLE IV SCH ×4 (01:16→09:07)
[2019-03-15] MEDS: DUONEB (A & A) INH SCH ×6 (03:35→23:20)
[2019-03-15 04:35] LABS: BASO# 0.03 X1000 (0.0-0.2); BASO% 0.2 % (0.0-0.8); EOS# 0.09 X1000 (0.0-0.7); EOS% 0.6 % (0.0-10.0); HEMATOCRIT 38.5 % (42.0-52.0); HEMOGLOBIN 12.8 g/dL (14.0-18.0); IMM GRAN# 0.03 X1000 (0.0-0.04); IMM GRAN% 0.2 % (0.0-0.5); LYMPH# 2.65 X1000 (1.2-3.4); LYMPH% 16.2 % (20.5-51.1); MCH 30.4 PG (27-31); MCHC 33.2 g/dL (33-37); MCV 91.4 FL (81-99); MONO# 2.11 X1000 (0.11-0.59); MONO% 12.9 % (1.7-9.3); MPV 11.1 FL (7.4-10.4); NEUT# 11.44 X1000 (1.4-6.5); NEUT% 69.9 % (42.2-75.2); PLT 204 X1000 (130-400); RBC 4.21 XMIL (4.7-6.1); RDW 13.8 % (11.5-14.5); WBC 16.35 X1000 (4.8-10.8)
[2019-03-15 04:58] LABS: ALLEN TEST YES; BE -2.6 mmoll (-3.0-3.0); BLOOD TYPE ARTERIAL; HCO3-(ACT) 22.9 mmoll (20.0-26.0); METHB 0.7 % (0.0-1.5); O2(CT) 21.6 mL/dL (15.0-23.0); O2HB 97.5 % (95.0-99.0); PCO2(98.6) 36 mmHg (35-45); PO2(98.6) 148 mmHg (60-100); SAMPLE BLOOD; SAO2 100.4 % (95.0-100.0); SRATE 16 BPM; THB 15.6 g/dL (11.5-17.4); TVOL 600 mL; pH(98.6) 7.39 (7.35-7.45)
[2019-03-15 04:59] LABS: MODALITY VENTILATOR
[2019-03-15 05:06] LABS: AGAP 11; ALBUMIN 2.8 g/dL (3.5-5.0); BUN 7 mg/dL (8-22); CALCIUM 8.3 mg/dL (8.8-10.2); CHLORIDE 110 mmol/L (98-107); COSMO 282; ESTIMATED GFR > 60; GLUCOSE 106 mg/dL (70-104); PHOSPHORUS 3.8 mg/dL (2.7-4.5); POTASSIUM 3.6 mmol/L (3.5-5.1); SODIUM 142 mmol/L (136-145); TCO2 21 mmol/L (25-35)
[2019-03-15] MEDS: CLINDAMYCIN 600 MG/D5W 600 MG/50 ML IVPB IV SCH ×3 (06:22→23:30)
--- NOTE | 2019-03-15 08:16 | Diag Imaging Result Doc PS360 ---
CHEST-PORTABLE - 03/15/2019 INDICATION: Intubated COMPARISON: 03/14/2019 FINDINGS: There is an endotracheal tube and nasogastric tube in good position. There is some stable faint linear atelectasis in the right midlung. No infiltrates or edema. Heart size is normal. No pneumothorax or pleural effusion. IMPRESSION: Faint linear atelectasis in the right midlung. Otherwise no acute disease or complication. Electronically signed by Frank Hinton 03/15/2019 8:14 AM
--- NOTE | 2019-03-15 08:56 | PROVIDER PROGRESS NOTE ---
Progress Note Pulmonary additional note: I have seen and examined the case, reviewed the EMR, labs, latest images and other medical teams notes. Also reviewed the IT INFRASTRUCTURE ENGINEER notes and signed necessary form(s). I have noted changes in condition from yesterday. Please see also signed progress sheet. I reviewed the medications in summary list. I reviewed the orders of the patient. Seizures, pneumonia (aspiration) and acute respiratory failure. Will attempt weaaning trials for AC today. I checked Ventilator settings and titrated to patient needs per clinical protocols and watched the patient responses. I titrated sedation to patients needs per clinical protocols and monitored patient responses. (diprivan and ativan) Since yesterday, he was steady on vent and I am not aware of further seizure activity, will confirm with Nursing staff. Prognosis: Guarded for now. I reviewed latest notes from Dr. Escalona The patient during weaning trial extubated himself and tolerated. Case was discussed with patient thu at bedside. I did the evaluation exam and management on the other sheet and the AIRPORT SALES AGENT did the scribing only. I asked industrial staff nurse about condition changes and if they have any needs in regard to today conditions. I spent 30 minutes in this process.
[2019-03-15] MEDS: KEPPRA 1,000 MG/NS 1,000 MG/100 ML IVPB IV SCH ×2 (09:07→20:00)
[2019-03-15] MEDS: ATIVAN IV PRN ×2 (10:10→20:26)
[2019-03-15] MEDS: VANCOMYCIN 1,500 MG in NS 250 ML IV SCH (11:00)
[2019-03-15] MEDS: D5 NS 1,000 ML IV SCH (12:45)
[2019-03-15] MEDS: PROTONIX IV SCH (14:51)
[2019-03-15] MEDS: LEVAQUIN 750 MG/D5W 750 MG/150 ML IVPB IV SCH (14:51)
--- NOTE | 2019-03-15 17:39 | PROGRESS NOTE ---
DATE: 03/15/2019 INTERVAL HISTORY: The patient remains intubated and sedated. No acute events overnight. Remains roughly stable otherwise. REVIEW OF SYSTEMS: Unable to obtain secondary to patient's mental status. LABS: WBC 16.65, hemoglobin 12.8, hematocrit 38.5, platelets 204,000. ABG with pH 7.39, pCO2 36, PO2 148 on ventilator on 40% oxygen. Sodium 142, potassium 3.6, BUN 7, creatinine 1, glucose 106. IMAGING: Chest x-ray with faint linear atelectasis in right mid lung, but otherwise no acute process. VITALS: T-max 100 degrees, pulse 100, respirations 24, blood pressure 158/96, O2 saturation 100% on mechanical ventilation 40% oxygen. PHYSICAL EXAMINATION: General: No acute distress, intubated and sedated. HEENT: Normocephalic, atraumatic. ET tube remains in place. Cardiovascular: Slightly tachycardic, but regular. No murmurs noted. Pulmonary: Essentially clear to auscultation bilaterally. Abdomen: Soft, nontender, nondistended. Bowel sounds positive. Extremities: Peripheral pulses intact. No clubbing, cyanosis. Neurologic: Limited by sedation, but pupils equal, round, reactive to light. Occasional nonpurposeful movement of all extremities. Occasional cough or spontaneous respiration over the ventilator. Psychiatric: Patient is sedated on the ventilator. ASSESSMENT AND PLAN: 1. Respiratory failure, likely aspiration pneumonia. I strongly suspect this is secondary to seizure. On minimal support from the ventilator with excellent oxygenation. Repeat x-ray almost clear. Suspected seizure was the primary problem. Remains on antibiotics with vancomycin and Levaquin but continues to do well. We will likely discontinue vancomycin tomorrow. Pulmonary following and hopefully we will be able to extubate in the next 24 hours or so. 2. Seizure disorder, medication noncompliance. Patient with known history of seizure disorder, but does not take medications at home. Came in with seizure, unresponsive and hypoxic. He has was placed back on Keppra and has done well since then. Phenobarbital and Ativan have been ordered on a p.r.n. basis, but those have not been required since he was placed back on the Keppra. 3. Metabolic encephalopathy present on admission. Likely secondary to seizure respiratory distress. We will see how this but his mental status does once he is extubated. 4. Acute kidney injury, now resolved. 5. Sinusitis instantly noted on imaging. On antibiotics as above. 6. Severe sepsis secondary to aspiration pneumonia and seizure. Patient with markedly elevated lactate on admission. This has resolved and was normal on the last check. 7. Hypernatremia, remains resolved. Monitor labs. 8. Volume depletion, improved with IV fluids overnight. Continue gentle IV fluids until he is extubated and able to take oral intake.
[2019-03-16] MEDS: VANCOMYCIN 1,500 MG in NS 250 ML IV SCH (00:03)
[2019-03-16] MEDS: D5 NS 1,000 ML IV SCH (02:02)
[2019-03-16] MEDS: DUONEB (A & A) INH SCH ×3 (03:35→12:02)
[2019-03-16 04:22] LABS: ALLEN TEST YES; BE 1.7 mmoll (-3.0-3.0); BLOOD TYPE ARTERIAL; HCO3-(ACT) 26.2 mmoll (20.0-26.0); METHB 1.1 % (0.0-1.5); O2(CT) 17.5 mL/dL (15.0-23.0); O2HB 94.5 % (95.0-99.0); PCO2(98.6) 38 mmHg (35-45); PO2(98.6) 80 mmHg (60-100); SAMPLE BLOOD; SAO2 97.4 % (95.0-100.0); THB 13.1 g/dL (11.5-17.4); pH(98.6) 7.44 (7.35-7.45)
[2019-03-16 04:24] LABS: MODALITY ROOM AIR
[2019-03-16] MEDS: CLINDAMYCIN 600 MG/D5W 600 MG/50 ML IVPB IV SCH (06:14)
[2019-03-16 06:30] LABS: BASO# 0.04 X1000 (0.0-0.2); BASO% 0.3 % (0.0-0.8); EOS# 0.13 X1000 (0.0-0.7); EOS% 0.9 % (0.0-10.0); HEMATOCRIT 38.3 % (42.0-52.0); HEMOGLOBIN 12.6 g/dL (14.0-18.0); IMM GRAN# 0.04 X1000 (0.0-0.04); IMM GRAN% 0.3 % (0.0-0.5); LYMPH# 2.47 X1000 (1.2-3.4); LYMPH% 17.4 % (20.5-51.1); MCH 30.1 PG (27-31); MCHC 32.9 g/dL (33-37); MCV 91.4 FL (81-99); MONO# 1.78 X1000 (0.11-0.59); MONO% 12.6 % (1.7-9.3); MPV 11.6 FL (7.4-10.4); NEUT# 9.71 X1000 (1.4-6.5); NEUT% 68.5 % (42.2-75.2); PLT 196 X1000 (130-400); RBC 4.19 XMIL (4.7-6.1); RDW 13.5 % (11.5-14.5); WBC 14.17 X1000 (4.8-10.8)
[2019-03-16 06:56] LABS: AGAP 11; BUN 5 mg/dL (8-22); CALCIUM 8.8 mg/dL (8.8-10.2); CHLORIDE 109 mmol/L (98-107); COSMO 282; CREATININE 0.9 mg/dL (0.7-1.2); ESTIMATED GFR > 60; GLUCOSE 92 mg/dL (70-104); PHOSPHORUS 4.1 mg/dL (2.7-4.5); SODIUM 143 mmol/L (136-145); TCO2 23 mmol/L (25-35)
--- NOTE | 2019-03-16 08:18 | Diag Imaging Result Doc PS360 ---
EXAM: CHEST-PORTABLE INDICATION: Intubated TECHNIQUE: One view COMPARISON: 03/15/2019 FINDINGS: There has been interval extubation and removal of the NG tube. The lungs remain essentially clear with no new infiltrates identified. There is no discrete pleural fluid collection or pneumothorax. The cardiomediastinal silhouette and central vasculature are grossly unremarkable. IMPRESSION: Interval extubation and removal of the NG tube. Stable chest, otherwise. Electronically signed by Alvarez Flanagan 03/16/2019 8:16 AM
[2019-03-16] MEDS: KEPPRA 1,000 MG/NS 1,000 MG/100 ML IVPB IV SCH (08:52)
[2019-03-16] MEDS ORDERED: AZACTAM 1 GM in NS 50 ML IV SCH (10:30)
--- NOTE | 2019-03-16 10:45 | PROVIDER PROGRESS NOTE ---
Progress Note Dr. Easley Progress Note/Pulmonary and or critical care We appreciated progress of care, Complications, change in diagnosis, and instructions to patient. Subjective: We note the level of consciousness, bed (chair) position, family presence (if any), level of lethargy, feeling of symptoms, and changes from baseline condition/symptom. The patient is lying in bed with no acute distress noted. He was intubated on 03/13/19 and self extubated yesterday. He is on room at this time with SaO2 100%. He is not answering my questions most of time, but keeps asking to pull the carey out. He denies any pain or SOB or cough at this time. He does have a low fever at 100.1 this am at 0727. Objective: Vital Signs: We reviewed EMR current values for Pulse rate, Blood pressure, Pulse rate, respiratory rate and Pulse oximetry. Also noted other values and trends if present (e.g. I/O, CVP). Vital Signs 03/15/19 10:46 03/15/19 11:00 03/15/19 11:01 Temperature Pulse Rate 118 H 115 H 115 H Respiratory Rate Blood Pressure 166/77 140/95 O2 Sat by Pulse Oximetry 100 100 100 03/15/19 11:15 03/15/19 11:31 03/15/19 11:45 Temperature Pulse Rate 120 H 117 H 107 H Respiratory Rate Blood Pressure 148/98 118/67 157/93 O2 Sat by Pulse Oximetry 100 91 L 100 03/15/19 12:00 03/15/19 12:15 03/15/19 12:30 Temperature 99.9 F H Pulse Rate 109 H 118 H 100 H Respiratory Rate 24 Blood Pressure 156/91 159/92 158/96 O2 Sat by Pulse Oximetry 100 100 100 03/15/19 12:46 03/15/19 12:47 03/15/19 13:00 Temperature Pulse Rate 120 H 126 H 115 H Respiratory Rate Blood Pressure 158/80 142/88 O2 Sat by Pulse Oximetry 99 03/15/19 13:16 03/15/19 13:30 03/15/19 13:45 Temperature Pulse Rate 117 H 109 H 110 H Respiratory Rate Blood Pressure 110/65 132/79 105/60 O2 Sat by Pulse Oximetry 99 100 03/15/19 14:00 03/15/19 14:01 03/15/19 14:16 Temperature Pulse Rate 112 H 105 H 104 H Respiratory Rate Blood Pressure 133/84 143/97 O2 Sat by Pulse Oximetry 100 100 03/15/19 14:30 03/15/19 14:45 03/15/19 15:00 Temperature Pulse Rate 106 H 108 H 103 H Respiratory Rate Blood Pressure 141/89 139/76 112/69 O2 Sat by Pulse Oximetry 100 100 100 03/15/19 15:15 03/15/19 15:30 03/15/19 15:45 Temperature Pulse Rate 98 H 112 H 111 H Respiratory Rate 21 Blood Pressure 115/67 125/82 123/71 O2 Sat by Pulse Oximetry 100 100 98 03/15/19 16:00 03/15/19 16:01 03/15/19 17:00 Temperature 97.9 F Pulse Rate 97 H 96 H 111 H Respiratory Rate 21 20 32 H Blood Pressure 113/82 137/75 O2 Sat by Pulse Oximetry 93 L 100 100 03/15/19 17:01 03/15/19 17:02 03/15/19 18:00 Temperature Pulse Rate 112 H 111 H 108 H Respiratory Rate 26 H 43 H 20 Blood Pressure 142/75 137/80 O2 Sat by Pulse Oximetry 99 98 98 03/15/19 18:01 03/15/19 19:00 03/15/19 19:36 Temperature Pulse Rate 116 H 104 H 91 H Respiratory Rate 25 H 26 H 18 Blood Pressure 134/72 O2 Sat by Pulse Oximetry 98 99 100 03/15/19 19:46 03/15/19 20:01 03/15/19 21:00 Temperature 99.3 F Pulse Rate 107 H 111 H 100 H Respiratory Rate 12 19 24 Blood Pressure 134/72 129/47 122/75 O2 Sat by Pulse Oximetry 100 99 100 03/15/19 22:00 03/15/19 23:00 03/16/19 00:00 Temperature 99.8 F H Pulse Rate 106 H 93 H 111 H Respiratory Rate 17 21 18 Blood Pressure 130/76 133/75 128/70 O2 Sat by Pulse Oximetry 100 100 100 03/16/19 01:00 03/16/19 02:00 03/16/19 03:00 Temperature Pulse Rate 93 H 92 H 82 Respiratory Rate 25 H 24 22 Blood Pressure 126/73 119/66 125/64 O2 Sat by Pulse Oximetry 100 100 100 03/16/19 03:45 03/16/19 04:00 03/16/19 05:00 Temperature 98.8 F Pulse Rate 91 H 73 Respiratory Rate 18 20 Blood Pressure 112/62 124/69 O2 Sat by Pulse Oximetry 100 100 100 03/16/19 06:11 03/16/19 07:00 03/16/19 07:27 Temperature 100.1 F H Pulse Rate 80 77 Respiratory Rate 13 15 Blood Pressure 129/71 127/82 O2 Sat by Pulse Oximetry 100 100 03/16/19 08:00 03/16/19 08:41 03/16/19 09:01 Temperature Pulse Rate 76 71 84 Respiratory Rate 18 20 21 Blood Pressure 116/64 141/70 O2 Sat by Pulse Oximetry 100 100 100 03/16/19 10:00 Temperature Pulse Rate 82 Respiratory Rate 23 Blood Pressure 123/66 O2 Sat by Pulse Oximetry 100 Intake & Output 03/15/19 03/16/19 03/16/19 19:59 07:59 19:59 Intake Total 1138 / 2838 1700 / 2838 Output Total 1600 / 3500 1900 / 3500 Balance -462 / -662 -200 / -662 Intake: Intake, IV Amount 688 / 1888 1200 / 1888 Intake, IVPB 450 / 950 500 / 950 Output: Output, Urine Carey Amount 1600 / 3500 1900 / 3500 Other: Number of Bowel Movements 0 Physical Examination: General: Lying in bed with no acute distress noted. HEENT: Normocephalic. Atraumatic. Mucus pink and moist. Chest: Even and unlabored. Symmetrical excursion. Clear to auscultation bilaterally. CVS: Slightly tachycardia with S1 and S2 noted. Abdomen: Soft. Non-tender. Non-distended. Normoactive bowel sounds noted. Extremities: No pedal edema. No cyanosis. No clubbing. Dorsalis pedis 2+ bilaterally. Neuro: A/O x3. Slightly slurred speech. Follow simple commands. Labs and Radiology: Reviewed available labs and radiology values available at time of EMR review. Laboratory Results 03/15/19 03/15/19 03/15/19 13:35 16:25 20:08 WBC RBC Hgb Hct MCV MCH MCHC RDW Std Deviation Plt Count MPV Immature Gran % (Auto) Neut % (Auto) Lymph % (Auto) [place] % (Auto) Eos % (Auto) Baso % (Auto) Immature Gran # (Auto) Neut # (Auto) Lymph # (Auto) [place] # (Auto) Eos # (Auto) Baso # (Auto) Specimen Type Sample Site pH pCO2 pO2 HCO3 Base Excess Oxyhemoglobin ABG O2 Sat (Calculated) ABG O2 Saturation ABG Carboxyhemoglobin ABG Methemoglobin Manny Test A-a O2 Difference Total Hemoglobin Lactate Blood Gas Modality FiO2 % Sodium Potassium Chloride Carbon Dioxide Anion Gap BUN Creatinine Estimated GFR/1.73 m2 BUN/Creatinine Ratio Glucose POC Glucose 89 82 87 Calculated Osmolality Calcium Phosphorus Albumin Random Vancomycin 03/15/19 03/16/19 03/16/19 22:28 00:34 04:10 WBC RBC Hgb Hct MCV MCH MCHC RDW Std Deviation Plt Count MPV Immature Gran % (Auto) Neut % (Auto) Lymph % (Auto) [place] % (Auto) Eos % (Auto) Baso % (Auto) Immature Gran # (Auto) Neut # (Auto) Lymph # (Auto) [place] # (Auto) Eos # (Auto) Baso # (Auto) Specimen Type ARTERIAL Sample Site R RADIAL pH 7.44 pCO2 38 pO2 80 HCO3 26.2 H Base Excess 1.7 Oxyhemoglobin 94.5 L ABG O2 Sat (Calculated) 17.5 ABG O2 Saturation 97.4 ABG Carboxyhemoglobin 1.90 ABG Methemoglobin 1.1 Manny Test YES A-a O2 Difference 22.0 Total Hemoglobin 13.1 Lactate 0.90 Blood Gas Modality ROOM AIR FiO2 % 21.0 Sodium Potassium Chloride Carbon Dioxide Anion Gap BUN Creatinine Estimated GFR/1.73 m2 BUN/Creatinine Ratio Glucose POC Glucose 114 H Calculated Osmolality Calcium Phosphorus Albumin Random Vancomycin 9.00 03/16/19 03/16/19 03/16/19 04:10 04:10 05:35 WBC 14.17 H RBC 4.19 L Hgb 12.6 L Hct 38.3 L MCV 91.4 MCH 30.1 MCHC 32.9 L RDW Std Deviation 13.5 Plt Count 196 MPV 11.6 H Immature Gran % (Auto) 0.3 Neut % (Auto) 68.5 Lymph % (Auto) 17.4 L [place] % (Auto) 12.6 H Eos % (Auto) 0.9 Baso % (Auto) 0.3 Immature Gran # (Auto) 0.04 Neut # (Auto) 9.71 H Lymph # (Auto) 2.47 [place] # (Auto) 1.78 H Eos # (Auto) 0.13 Baso # (Auto) 0.04 Specimen Type Sample Site pH pCO2 pO2 HCO3 Base Excess Oxyhemoglobin ABG O2 Sat (Calculated) ABG O2 Saturation ABG Carboxyhemoglobin ABG Methemoglobin Manny Test A-a O2 Difference Total Hemoglobin Lactate Blood Gas Modality FiO2 % Sodium 143 Potassium 4.0 Chloride 109 H Carbon Dioxide 23 L Anion Gap 11 BUN 5 L Creatinine 0.9 Estimated GFR/1.73 m2 > 60 BUN/Creatinine Ratio 6 Glucose 92 POC Glucose 93 Calculated Osmolality 282 Calcium 8.8 Phosphorus 4.1 Albumin 3.0 L Random Vancomycin 03/16/19 09:11 WBC RBC Hgb Hct MCV MCH MCHC RDW Std Deviation Plt Count MPV Immature Gran % (Auto) Neut % (Auto) Lymph % (Auto) [place] % (Auto) Eos % (Auto) Baso % (Auto) Immature Gran # (Auto) Neut # (Auto) Lymph # (Auto) [place] # (Auto) Eos # (Auto) Baso # (Auto) Specimen Type Sample Site pH pCO2 pO2 HCO3 Base Excess Oxyhemoglobin ABG O2 Sat (Calculated) ABG O2 Saturation ABG Carboxyhemoglobin ABG Methemoglobin Manny Test A-a O2 Difference Total Hemoglobin Lactate Blood Gas Modality FiO2 % Sodium Potassium Chloride Carbon Dioxide Anion Gap BUN Creatinine Estimated GFR/1.73 m2 BUN/Creatinine Ratio Glucose POC Glucose 87 Calculated Osmolality Calcium Phosphorus Albumin Random Vancomycin Assessment: Acute respiratory failure. Self extubated on 03/15/19. Intubated on 03/13/19. Resolved. Aspiration pneumonia with RML faint linear atelectasis. Improved. Seizures. Metabolic encephalopathy. Improved. Plan: Continue current treatment and supportive care per admitting and other teams on the case. Antibiotics (clindamycin, Levaquin and vancomycin) and Bronchodilators. I titrated Oxygen to patient needs per clinical protocols. Appropriate DVT and GI prophylaxis Input was appreciated from Admitting MD and other teams on the case. Evaluation time in minutes: 32 minutes.
[2019-03-16] MEDS ORDERED: VANCOMYCIN 1,800 MG in NS 250 ML IV SCH (11:00)
[2019-03-16] MEDS ORDERED: FLU VACCINE IM ONE (12:20)
[2019-03-16] MEDS ORDERED: PNEUMOVAX 23 IM ONE (12:30)
[2019-03-16 13:11] VITALS: BP 134/68
--- NOTE | 2019-04-23 14:21 | DISCHARGE SUMMARY ---
ADMISSION DATE: 03/13/2019 DISCHARGE DATE: 03/16/2019 ADMISSION DIAGNOSES: 1. Seizure. 2. Acute kidney injury. 3. Left lower lobe pneumonia. HISTORY AND HOSPITAL COURSE: Briefly, the patient was admitted after having a seizure while donating blood. He had a seizure disorder. He had a creatinine that was up to 1.3. He was placed on Keppra, vancomycin, Levaquin, and clindamycin. Pulmonary was consulted. He had been intubated, so he was extubated and improved. There was concern over aspiration-type pneumonia. The patient overall improved, and he was very insistent on going home. We ambulated him. He had not had a seizure in over 24 hours, and he was discharged home in stable condition on Keppra. I think he was given additional antibiotics too, but discharge condition is stable. He was encouraged to follow up with Neurology for further management. cc: Ivan Lisa MD
== END 2019-03-16 13:30 | disposition home or self-care (01) | DRG 871 ==
LOC: SUPCPDRO → ED 10:32 → ICU 16:42 → SUATTDRO 16:42
PROVIDERS: ATTEND Internal Medicine

== ENCOUNTER 2019-03-16 15:49 | Inpatient (IN) ==
[2019-03-16] MEDS ORDERED: ASPIRIN PO ONE (16:21)
--- NOTE | 2019-03-16 16:56 | EKG Report ---
Test Performed on : 03/16/2019 4:10:42 PM Test Reason : chest pain Blood Pressure : / mmHG Vent. Rate : 066 BPM Atrial Rate : 066 BPM P-R Int : 132 ms QRS Dur : 092 ms QT Int : 374 ms P-R-T Axes : 072 084 073 degrees QTc Int : 392 ms Normal sinus rhythm. with sinus arrhythmia. ST elevation, consider early repolarization, pericarditis, or injury Nonspecific ST abnormality Abnormal ECG When compared with ECG of 21-SEP-2017 09:56, ST no longer elevated in Anterior leads Nonspecific T wave abnormality no longer evident in Inferior leads Unconfirmed Result
[2019-03-16 17:01] LABS: BASO# 0.12 X1000 (0.0-0.2); BASO% 0.7 % (0.0-0.8); EOS# 0.15 X1000 (0.0-0.7); EOS% 0.9 % (0.0-10.0); HEMATOCRIT 41.7 % (42.0-52.0); HEMOGLOBIN 13.8 g/dL (14.0-18.0); IMM GRAN# 0.05 X1000 (0.0-0.04); IMM GRAN% 0.3 % (0.0-0.5); LYMPH# 2.05 X1000 (1.2-3.4); LYMPH% 12.4 % (20.5-51.1); MCH 29.9 PG (27-31); MCHC 33.1 g/dL (33-37); MCV 90.5 FL (81-99); MONO# 1.72 X1000 (0.11-0.59); MONO% 10.4 % (1.7-9.3); NEUT# 12.43 X1000 (1.4-6.5); NEUT% 75.3 % (42.2-75.2); PLT 207 X1000 (130-400); RBC 4.61 XMIL (4.7-6.1); RDW 13.3 % (11.5-14.5); WBC 16.52 X1000 (4.8-10.8)
[2019-03-16 17:11] LABS: INR 0.99; PROTIME 13.2 Seconds (11.0-16.0)
[2019-03-16 17:12] LABS: PTT 34.3 Seconds (22.3-41.8)
[2019-03-16 17:32] LABS: AGAP 10; ALB/GLOB RATIO 1.5; ALBUMIN 3.5 g/dL (3.5-5.0); ALKALINE PHOSPHATASE 56 U/L (32-122); BUN 5 mg/dL (8-22); CALCIUM 9.4 mg/dL (8.8-10.2); CHLORIDE 104 mmol/L (98-107); COSMO 277; CREATININE 0.9 mg/dL (0.7-1.2); ESTIMATED GFR > 60; GLUCOSE 107 mg/dL (70-104); GOT 41 U/L (10-34); GPT 16 U/L (10-44); SODIUM 140 mmol/L (136-145); TCO2 26 mmol/L (25-35); TOTAL BILIRUBIN 0.53 mg/dL (0.20-1.00); TOTAL PROTEIN 5.8 g/dL (6.3-8.3)
[2019-03-16 17:35] LABS: CK PROFILE 1966 U/L (24-204)
--- NOTE | 2019-03-16 17:49 | Diag Imaging Result Doc PS360 ---
EXAM: CHEST-2 VIEWS 03/16/2019 HISTORY: chest pain TECHNIQUE: PA and lateral chest COMMENT: There is a granuloma present in the right lower lobe. There is no evidence of acute cardiac or pulmonary disease. Compared to the previous study of 03/16/2019 at 0516 inspiration is better and otherwise are has been no significant change. IMPRESSION: No acute disease. Electronically signed by Nima Elizabeth 03/16/2019 5:47 PM
[2019-03-16 18:05] LABS: CK INDEX 0.1 (0.0-2.5); CK-MB 1.74 ng/mL (0.0-5.0)
--- NOTE | 2019-03-16 19:15 | Diag Imaging Result Doc PS360 ---
EXAM: CT HEAD W/O CONTRAST 03/16/2019 HISTORY: altered mentation TECHNIQUE: This exam was performed using automated exposure control, adjustment of mA or kV according to patient size, and/or use of iterative reconstruction technique. COMMENT: There is no evidence of mass effect, bleed, or abnormal extra-axial fluid collection. There is some mucosal thickening in the ethmoid air cells and right frontal sinus. The calvarium is intact. The appearance the brain has not changed significantly since the previous study of 03/14/2019. The sinusitis changes have improved. IMPRESSION: No evidence of acute intracranial disease. Electronically signed by Nima Elizabeth 03/16/2019 7:12 PM
[2019-03-16] MEDS ORDERED: AUGMENTIN PO ONE (19:16)
[2019-03-16] MEDS ORDERED: NS 1,000 ML IV ONE (20:00)
--- NOTE | 2019-03-16 20:01 | PROVIDER DOCUMENTATION ---
HPI-Chest Pain - General Chief Complaint: Chest Pain Stated Complaint: CP,WEAKNESS Time Seen by Provider: 03/16/19 18:23 Source: patient Allergies/Adverse Reactions: Patient Allergies Allergy/AdvReac Type Severity Reaction Status Date / Time amoxicillin [Amoxicillin] AdvReac Mild NAUSEA Verified 03/13/19 11:51 Home Medications: Home Medication List Medication Instructions Recorded Confirmed Last Taken Type Amoxicillin/Potassium Clav 1 ea PO Q12H #14 tab 03/16/19 Unknown Rx [Augmentin 875-125 Tablet] Levetiracetam [Keppra] 500 mg PO BID #60 tab 03/16/19 Unknown Rx - History of Present Illness-CP Nature of Presenting Problem: 34 yo male presents to [facility] ED c/o left sided chest pain. He denies any pleuritic component or feeling short of breath. No nausea or vomiting. He was recently discharged from the ICU earlier today after being admitted with status epilepticus. Per his fiance at bedside, the patient is still abnormal with confused gestures and mentation but no weakness or numbness or tingling or further seizure episodes. He was started on keppra 1000 mg daily and treated for presumed aspiration pneumonia with augmentin. He still notes left sided chest pain at this time and no cardiac risk factors besides tobacco use. Location: reports: other (left sided chest pain) Chest Pain Radiation: reports: no radiation Quality of Pain: reports: sharp Severity in ED: moderate Onset/Duration: 4-6 hours ago Timing: still present Context/Activities at Onset: reports: none Modifying Factors: improves with: nothing Associated Symptoms: reports: denies symptoms. denies: fever/chills, nausea, shortness of breath, syncope, vomiting, weakness Nitro Today/Relief: no nitro taken today Aspirin Treatment Today: no aspirin today Prior Chest Pain/Cardiac Workup: reports: no prior chest pain Similar Symptoms Previously?: No Recently Seen Here or By Another Healthcare Provider: Yes (status epilepticus discharged from ICU) Review of Systems - Adult - REVIEW OF SYSTEMS - ADULT Constitutional: reports: no symptoms reported. denies: fever Eyes: reports: no symptoms reported Ears, Nose, Mouth & Throat: reports: no symptoms reported Cardiovascular: reports: chest pain. denies: irregular heart rate, syncope Respiratory: reports: no symptoms reported. denies: shortness of breath Gastrointestinal: reports: no symptoms reported Genitourinary: reports: no symptoms reported Musculoskeletal: reports: no symptoms reported Integumentary: reports: no symptoms reported Neurological: reports: no symptoms reported. denies: ataxia, dizziness/vertigo, headache/migraines, loss of balance, numbness, paresthesia, seizure, slurred speech, syncope Psychiatric: reports: no symptoms reported Endocrine: reports: no symptoms reported Hematologic/Lymphatic: reports: no symptoms reported Allergic/Immunologic: reports: no symptoms reported All Other Systems: Reviewed and Negative Past History - Adult - PAST MEDICAL HISTORY-ADULT Review of Records: reports: Old Records Reviewed Major Childhood Illnesses: reports: denies history Cardiovascular: reports: denies history Respiratory: reports: denies history Gastrointestinal: reports: denies history Obstetrical/Gynecological: reports: denies history Genitourinary: reports: denies history Musculoskeletal: reports: denies history Neurological: reports: denies history Psychiatric: reports: denies history Endocrine/Immune: reports: denies history Other Conditions: reports: denies history - PRIOR SURGERIES/PROCEDURES Surgical/Procedure History: reports: none - IMMUNIZATION STATUS Childhood Immunizations: See Nurse Assessment Flu Vaccine: See Nurse Assessment - FAMILY HISTORY Family History: reviewed, not pertinent - SOCIAL HISTORY Smoking: less than 1 pack/day Substance Use: marijuana Alcohol Use Frequency: never Physical Exam-General - PHYSICAL EXAM-ADULT Initial Vital Signs Reviewed: Yes - CONSTITUTIONAL General Appearance: appears well - EYES Eyes: PERRL/EOMI - HEAD, EARS, NOSE, MOUTH & THROAT HENMT: normocephalic/atraumatic - NECK Neck: non-tender - RESPIRATORY Respiratory: chest non-tender, lungs clear, normal breath sounds - CARDIOVASCULAR Cardiovascular: normal peripheral pulses, regular rate, rhythm, no edema - GASTROINTESTINAL (ABDOMEN) Abdominal Exam: non tender - LYMPHATIC Lymphatic: no adenopathy - MUSCULOSKELETAL Back Exam: normal inspection Extremity: normal range of motion Peripheral Pulses: radial (R): 2+, radial (L): 2+ - SKIN Integumentary: normal color - NEUROLOGIC 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 negative: focal weakness, motor weakness - PSYCHIATRIC Psych/Mental Status: other (confused) - HEART Score HEART Score: History: Slightly Suspicious HEART Score: ECG: Normal HEART Score: Age: < or = 45 Years HEART Score: Risk Factors for Atherosclerotic Disease: 1 or 2 Risk Factors HEART Score: Troponin: < or = Normal Limit Total HEART Score:: 1 Progress - PLAN OF CARE/RESULTS Progress/Plan/Lab Results: Vital Signs - 8 hr 03/16/19 16:10 03/16/19 18:13 Temperature 99.2 F 98.5 F Pulse Rate 78 64 Respiratory Rate 19 16 Blood Pressure 142/90 151/92 O2 Sat by Pulse Oximetry 98 97 Laboratory Results - last 24 hr 03/16/19 03/16/19 03/16/19 16:30 16:30 16:30 WBC 16.52 H RBC 4.61 L Hgb 13.8 L Hct 41.7 L MCV 90.5 MCH 29.9 MCHC 33.1 RDW Std Deviation 13.3 Plt Count 207 MPV 11.0 H Immature Gran % (Auto) 0.3 Neut % (Auto) 75.3 H Lymph % (Auto) 12.4 L Meeker % (Auto) 10.4 H Eos % (Auto) 0.9 Baso % (Auto) 0.7 Immature Gran # (Auto) 0.05 H Neut # (Auto) 12.43 H Lymph # (Auto) 2.05 Meeker # (Auto) 1.72 H Eos # (Auto) 0.15 Baso # (Auto) 0.12 PT INR PTT (Actin FS) Sodium 140 Potassium 4.0 Chloride 104 Carbon Dioxide 26 Anion Gap 10 BUN 5 L Creatinine 0.9 Estimated GFR/1.73 m2 > 60 BUN/Creatinine Ratio 6 Glucose 107 H Calculated Osmolality 277 Calcium 9.4 Total Bilirubin 0.53 AST 41 H ALT 16 Alkaline Phosphatase 56 Creatine Kinase 1966 H Creatine Kinase Index 0.1 CK-MB (CK-2) 1.74 Troponin T High Sens [id number] Pept 270 H Total Protein 5.8 L Albumin 3.5 Globulin 2.3 Albumin/Globulin Ratio 1.5 03/16/19 03/16/19 16:30 16:30 WBC RBC Hgb Hct MCV MCH MCHC RDW Std Deviation Plt Count MPV Immature Gran % (Auto) Neut % (Auto) Lymph % (Auto) Meeker % (Auto) Eos % (Auto) Baso % (Auto) Immature Gran # (Auto) Neut # (Auto) Lymph # (Auto) Meeker # (Auto) Eos # (Auto) Baso # (Auto) PT 13.2 INR 0.99 PTT (Actin FS) 34.3 Sodium Potassium Chloride Carbon Dioxide Anion Gap BUN Creatinine Estimated GFR/1.73 m2 BUN/Creatinine Ratio Glucose Calculated Osmolality Calcium Total Bilirubin AST ALT Alkaline Phosphatase Creatine Kinase Creatine Kinase Index CK-MB (CK-2) Troponin T High Sens < 6 [id number] Pept Total Protein Albumin Globulin Albumin/Globulin Ratio Orders Category Date Time Status Cardiac Monitoring DIRECTED Care 03/16/19 16:22 Active Oxygen Therapy- ED Nursing DIRECTED Care 03/16/19 16:22 Active Saline Loc NOW Care 03/16/19 16:22 Active CHEST-2 VIEWS [RAD] Stat Exams 03/16/19 16:[address] HEAD W/O CONTRAST [CT] Stat Exams 03/16/19 18:24 Completed CBC WITH ELECTRONIC DIFF [HEME] Stat Lab 03/16/19 16:30 Completed CK PROFILE [SP CHEM] Stat Lab 03/16/19 16:30 Completed COMPREHENSIVE METABOLIC PANEL [CHEM] Stat Lab 03/16/19 16:30 Completed PRO B-NATRIURETIC PEPTIDE Stat Lab 03/16/19 16:30 Completed PROTIME WITH INR [COAG] Stat Lab 03/16/19 16:30 Completed PTT [COAG] Stat Lab 03/16/19 16:30 Completed TROPONIN T HIGH SENSITIVITY Stat Lab 03/16/19 16:30 Completed URINALYSIS W/POSS RFLX CULT [URINALYSIS] Stat Lab 03/16/19 18:24 Uncollected URINE DRUG SCREEN Stat Lab 03/16/19 18:24 Uncollected Amoxicillin/Pot Clavulanate [Augmentin] Med 03/16/19 19:16 Discontinued 875 mg PO NOW ONE Aspirin Med 03/16/19 16:21 Discontinued 325 mg PO NOW ONE CP/SOB/Palp >45 yrs of Age Stat Oth 03/16/19 16:21 Ordered EKG [EKG] Stat Ther 03/16/19 16:22 Draft Benign EKG and negative troponin. Given aspirin in waiting room. Mildly elevated CPK likely residual from seizure activity. Electrolytes benign. No MABEL. Still not back to baseline per fiance at bedside. Altered mentation. Spoke to Dr. Arnaud Knight hospitalist who agreed to admit him as an observation stay to a regular floor bed. Awaiting UDS results. Cardiac work up negative. CXR benign and noted leukocytosis and given augmentin. Patient and fiance aware and agree with plan of care. Result Diagrams: 03/16/19 16:30 03/16/19 16:30 - XRAY 1 XRAY Study: Chest Impression: Normal, See EMR Report (EXAM: CHEST-2 VIEWS 03/16/2019 HISTORY: chest pain TECHNIQUE: PA and lateral chest COMMENT: There is a granuloma present in the right lower lobe. There is no evidence of acute cardiac or pulmonary disease. Compared to the previous study of 03/16/2019 at 0516 inspiration is better and otherwise are has been no significant change. IMPRESSION: No acute disease. Electronically signed by Nima Elizabeth 03/16/2019 5:47 PM) - CT/MRI 1 CT Study: Head Impression: Normal, See EMR Report (EXAM: CT HEAD W/O CONTRAST 03/16/2019 HISTORY: altered mentation TECHNIQUE: This exam was performed using automated exposure control, adjustment of mA or kV according to patient size, and/or use of iterative reconstruction technique. COMMENT: There is no evidence of mass effect, bleed, or abnormal extra-axial fluid collection. There is some mucosal thickening in the ethmoid air cells and right frontal sinus. The calvarium is intact. The appearance the brain has not changed significantly since the previous study of 03/14/2019. The sinusitis changes have improved. IMPRESSION: No evidence of acute intracranial disease. Electronically signed by Nima Elizabeth 03/16/2019 7:12 PM) Departure - Departure Date of Disposition Decision: 03/16/19 Time of Disposition Decision: 20:03 DIAGNOSIS: Aspiration pneumonia, Leukocytosis, Rhabdomyolysis, Acute encephalopathy Disposition: ADMITTED INPATIENT 09 Certified Medical Emergency: Emergent Condition: Good Referrals and Follow-Ups: None,PCP [Primary Care Provider] - - Critical Care Note This patient required my direct & personal management of CC.: No Attestation - Physician/ DIVYA Attestation Patient care was provided by Advanced Practice Provider:: No The physician spent face to face time with patient:: Yes Advanced Practice Provider documentation review:: Supervising physician onsite and consulted in the evaluation and care of this patient. The physician did have a face to face encounter with the patient.
[2019-03-16] MEDS ORDERED: TORADOL PO ONE (20:06)
[2019-03-16] MEDS ORDERED: ZOFRAN IV PRN (20:07)
[2019-03-16 20:36] LABS: URINE SOURCE CLEAN CATCH
[2019-03-16 20:42] LABS: BILIRUBIN URINE NEGATIVE (NEGATIVE); BLOOD URINE NEGATIVE (NEGATIVE); COLOR YELLOW; GLUCOSE URINE NEGATIVE (NEGATIVE); KETONE URINE 20 mg/dL (NEGATIVE); LEUKOCYTES URINE NEGATIVE (NEGATIVE); NITRITE URINE NEGATIVE (NEGATIVE); PROTEIN URINE TRACE mg/dL (NEGATIVE); SP GRAVITY URINE 1.018; TURBIDITY URINE CLEAR (CLEAR); UROBILINOGEN URINE NORMAL (NORMAL)
[2019-03-16 20:47] LABS: UR EPITHELIAL CELLS <10 /HPF (<10); URINE BACTERIA NEGATIVE /HPF; URINE CASTS NONE SEEN; URINE CRYSTALS NONE SEEN; URINE RBC <10 /HPF (<10); URINE SMALL ROUND CELLS NONE SEEN; URINE WBC <10 /HPF (<10); URINE YEAST NONE SEEN
[2019-03-16] MEDS: KEPPRA PO SCH (20:53)
[2019-03-16] MEDS ORDERED: ASPIRIN ONE (20:56)
[2019-03-16 21:26] LABS: CK INDEX 0.1 (0.0-2.5); CK-MB 1.97 ng/mL (0.0-5.0)
[2019-03-16] MEDS: NS 1,000 ML IV SCH (22:47)
[2019-03-17] MEDS ORDERED: NORCO-7.5 PO PRN (00:49)
[2019-03-17] MEDS: TYLENOL PO PRN ×2 (01:47→11:20)
--- NOTE | 2019-03-17 04:48 | HISTORY AND PHYSICAL ---
PRIMARY CARE PROVIDER: None. CHIEF COMPLAINT: Altered mental status, left-sided chest pain, shortness of breath, runny nose, chills. HISTORY OF PRESENT ILLNESS: Mr. Byrd is a 34-year-old male who was discharged from our service today at his request after being admitted for a seizure on 03/13/2019 and medical noncompliance. He was found to have aspiration pneumonia at that time and initiated back on his home Keppra. Apparently he had to be intubated on 03/13/2019 and self-extubated himself on 03/15/2019. Per the significant other at bedside he has been seeing people that are not there. He has been seeing her father who has been for years. He has been having intermittent shortness of breath, left-sided chest pain, muscle aches and pain, runny nose, chills, and a productive cough with brownish sputum, and she stated today he got up and went for a walk and was trying to wander off, so he was brought back to the ED to be evaluated. He has not had any more seizures since admission. He had a head CT that did not show any acute disease, a low-grade temperature of 90 degrees. Chest x-ray does not show any pneumonia. White count is 16, and rhabdomyolysis with a CK of 19,066. We will admit him to the hospital, give him a 1 L bolus of IV fluids now, q. 2 hour neurologic checks. PHYSICAL EXAMINATION: VITAL SIGNS: Temperature is 98.6 degrees, heart rate 63, respirations 20, blood pressure 137/80, O2 is 96% on room air. GENERAL: Mr. Byrd is a 34-year-old gentleman who is lying on the stretcher in no acute distress. HEENT: Atraumatic, normocephalic. PERRL. Mucous membranes are moist. He does have clear drainage coming out of his nose. NECK: Supple. Trachea midline. CARDIOVASCULAR: S1, S2 appreciated. No murmurs, gallops or rubs noted. No JVD. PULMONARY: Breath sounds are clear bilaterally. GASTROINTESTINAL: Soft, nontender, nondistended. Positive bowel sounds in all 4 quadrants. EXTREMITIES: Negative for edema. Bilateral pedal pulses are palpable. NEUROLOGIC: Again he is awake, alert, oriented. Follows commands. Moves all extremities. SKIN: Appears to be warm, dry and intact. DIAGNOSTIC DATA: Head CT no evidence of acute intracranial disease. LABORATORY DATA: White count 16, hemoglobin and hematocrit 13 and 41, platelet count is 207,000. Sodium 140, potassium 4.1, BUN 5, creatinine 0.9, blood glucose is 107, AST is 41, ALT is 16. Initial CK was 1966. Two sets of troponins have been negative. Urinalysis is negative for bacteria. Negative for nitrites. Pending toxicology screen. Pending flu swab. ASSESSMENT AND PLAN: 1. Continued metabolic encephalopathy after a seizure. Head CT is completely negative. Per significant other at bedside he is not back to his baseline. He has been seeing people that are not there. He tried to walk out of the house today not knowing where he was going. However, at this time he is awake, he is alert, he is oriented. However, she states at times he is talking normally and then will just completely go out of it. He has not had any seizures since his last admission. We will keep him on his home Keppra. 2. Rhabdomyolysis. We have given him a 1 L bolus. We will continue with aggressive IV hydration. Continue to trend his CK. 3. Leukocytosis. 4. Recent aspiration pneumonia secondary to seizure. His chest x-ray does not show any evidence of pneumonia now. We will continue him on his home Augmentin and recheck a chest x-ray in the a.m. 5. Tobacco use and abuse. Will need continued education on smoking cessation as well as the means to quit. 6. Marijuana use. 7. Further recommendation to follow physician evaluation, laboratory and diagnostic data. Dictated by DECLAN Ricketts for Lionel Knight MD I have performed a face to face diagnostic evaluation. Labs/ Xrays- reviewed. Exam- Chest clear, CV- regular, Neuro- confused. A/P- Seizure with post ictial states. Admit, Neuro check, Keppra. Dr. Knight cc: Lionel Knight MD [facility]
[2019-03-17] MEDS: AUGMENTIN PO SCH ×3 (06:36→20:49)
[2019-03-17] MEDS: NS 1,000 ML IV SCH ×4 (07:38→20:48)
[2019-03-17 07:40] LABS: HEMATOCRIT 42.1 % (42.0-52.0); HEMOGLOBIN 13.7 g/dL (14.0-18.0); MCH 30.2 PG (27-31); MCHC 32.5 g/dL (33-37); MCV 92.9 FL (81-99); MPV 10.6 FL (7.4-10.4); RBC 4.53 XMIL (4.7-6.1); RDW 13.4 % (11.5-14.5); WBC 11.94 X1000 (4.8-10.8)
[2019-03-17 08:24] LABS: AGAP 15; ALBUMIN 3.1 g/dL (3.5-5.0); ALKALINE PHOSPHATASE 62 U/L (32-122); BUN 6 mg/dL (8-22); CALCIUM 9.2 mg/dL (8.8-10.2); CHLORIDE 106 mmol/L (98-107); COSMO 276; CREATININE 0.9 mg/dL (0.7-1.2); ESTIMATED GFR > 60; GLUCOSE 82 mg/dL (70-104); GOT 39 U/L (10-34); GPT 17 U/L (10-44); POTASSIUM 4.2 mmol/L (3.5-5.1); SODIUM 140 mmol/L (136-145); TCO2 19 mmol/L (25-35); TOTAL BILIRUBIN 0.56 mg/dL (0.20-1.00); TOTAL PROTEIN 6.3 g/dL (6.3-8.3)
[2019-03-17 08:38] LABS: CK PROFILE 1362 U/L (24-204)
--- NOTE | 2019-03-17 08:44 | Diag Imaging Result Doc PS360 ---
CHEST-2 VIEWS - 03/17/2019 INDICATION: follow up COMPARISON: 03/16/2019 FINDINGS: The lungs are normally expanded and clear. Heart size and mediastinal contours are normal. No pneumothorax or pleural effusion. IMPRESSION: Negative exam. Electronically signed by Frank Hinton 03/17/2019 8:42 AM
[2019-03-17 08:54] LABS: CK INDEX 0.1 (0.0-2.5); CK-MB 1.63 ng/mL (0.0-5.0)
[2019-03-17] MEDS: KEPPRA PO SCH ×2 (09:08→20:48)
--- NOTE | 2019-03-17 12:22 | PROGRESS NOTE ---
DATE: 03/17/2019 SUBJECTIVE: Mr. Byrd has no primary care physician. He came in this morning with altered mental status, left-sided chest pain, shortness of breath, runny nose, and chills. He complained of headache, and he also complained of chest discomfort. He was discharged from our service that day, yesterday, after being admitted for seizure on 03/13/2019 and medical noncompliance. He ran out of insurance, and he did not have his Keppra for over 1 month by his 's report. He was found to have aspiration pneumonia, initiated back on Keppra. Apparently, he was intubated on 03/14/2019, self-extubated on 03/15/2019. Per his significant other at the bedside, he has been seeing people, he had been seeing people who were not there, having visual hallucination, and just at times seemed to have confusion, seeing her father who had been for years and having intermittent shortness of breath, left-sided chest pain, muscle aches and pain, runny nose, chills and productive cough, brownish sputum. She stated that he got up and went for a walk and tried to wander off, so she brought him to the emergency room to get evaluated. He has not had any more seizures since admission. He had a CT of the head done that did not show any acute disease. Low-grade temperature degrees. Chest x- ray did not show any pneumonia. White count 16,000. Had rhabdomyolysis, CK was 19,660, so admitted him to the hospital. ADMISSION DIAGNOSES: 1. Continue metabolic encephalopathy after seizure, rhabdomyolysis. We have reinstituted his Keppra. 2. Rhabdomyolysis, giving him liberal fluids. 3. Leukocytosis. 4. Recent aspiration pneumonia secondary to seizure, which x-ray did not show any residual pneumonia. 5. Tobacco use and abuse. Continued to educate and encouraged him to quit smoking. 6. Marijuana use. 7. Nutrition, looks like it is good. REVIEW OF HIS ORDERS: At present time, he is on Augmentin 875 mg p.o. twice a day. He takes hydrocodone 7.5 mg every 6 hours p.r.n. pain. He is on Keppra 500 mg p.o. b.i.d., aspirin 325 mg a day. Ketorolac, he got 1 dose in the emergency room. LABORATORY DATA: His labs this morning, white count when he came in was 16,520, hematocrit 41 and it is 42 this morning, platelets at 203,000. Electrolytes, sodium 140, potassium 4.2, chloride 106, BUN 6, creatinine 0.9. AST is 39, ALT is 17, alkaline phosphatase is 62. His CKs have come down from 19,000 to 1362, so his renal function looks good. I do not see any sign of cardiac ischemia, and I believe the headache will improve as rhabdomyolysis improves. His blood pressures look good, 151/92, 137/84, 139/85. As far as the delirium and confusion, that seems to have improved as well. cc: Manny Buchanan MD MTDD
[2019-03-18] MEDS: TYLENOL PO PRN (01:45)
[2019-03-18] MEDS: NS 1,000 ML IV SCH ×3 (05:41→14:10)
[2019-03-18] MEDS: AUGMENTIN PO SCH ×2 (07:46→10:09)
[2019-03-18] MEDS: KEPPRA PO SCH ×2 (07:46→10:09)
--- NOTE | 2019-03-18 09:16 | DISCHARGE SUMMARY ---
ADMISSION DATE: 03/17/2019 DISCHARGE DATE: 03/18/2019 HISTORY AND HOSPITAL COURSE: This is a 35-year-old, black male, who was discharged from my service on 03/17/2019, came back that day, I think, admitted for seizures on 03/13/2019, and he was unable to get his seizure medications for at least a month. Prior to that time, he was found to have aspiration pneumonia, and initiated on Keppra. Apparently, intubated on 03/13/2019, and self-extubated himself on 03/15/2019. The patient was at the bedside and was seeing people that were not there. His stated that he was seeing her father, who had been for years, so visual hallucinations. He had chills, productive cough, productive cough with brownish sputum. They tried to go for a walk on that day of admission, and he got up and wandered off, so he was brought back to the emergency room. He has not had any more seizures, but he had just started back on his Keppra medicine. She was worried. He seems to have spells, she says, where he feels like he kind of shakes and has visual hallucinations, and he had 1 or 2 of those. He feels great and wants to go home. He did come in with some rhabdomyolysis. CPKs were elevated, and they have come down nicely. Renal function looks good. He is eating. We have counseled him on avoiding tobacco and ethanol, and will see if we can get him home. DISCHARGE MEDICATIONS: I think he can stop his Augmentin. He can be on Keppra 500 mg p.o. b.i.d., and that is the only medication we will discharge him on. He needs to find a primary care doctor. I think he has one in mind that he is trying to get established with. cc: Manny Buchanan MD
[2019-03-18 12:43] VITALS: BP 144/94
== END 2019-03-18 14:57 | disposition home or self-care (01) | DRG 71 ==
LOC: 4N 15:49 → ED 15:49 → OBSVTOIN 03-17 00:15 → SUATTDRO 03-17 00:15
PROVIDERS: ATTEND Emergency Medicine